=== PATIENT | female | born 1950 ===

== ENCOUNTER 2017-01-05 21:42 | Emergency (ER) | payer MEDICARE, MEDICAID ==
[2017-01-05 21:42] VITALS: BMI 24.7
[2017-01-05] MEDS ORDERED: Sodium Chloride 0.9% 1,000 ML IV STA (22:26)
--- NOTE | 2017-01-05 22:38 | ED PDOC ---
HPI: Fever Fever Onset Was: 01/03/17 The Fever Was Measured: Tympanic Past Medical History Vital Signs: Last Vital Signs Temp 100.4 F H 01/05/17 22:15 Pulse 92 H 01/05/17 22:15 Resp 16 01/05/17 22:15 BP 101/57 L 01/05/17 22:15 Pulse Ox 98 01/05/17 22:39 - Medical History PMH: Anxiety, Asthma, CHF, Depression, Diabetes, Gastritis, HTN, Hypercholesterolemia, Hypothyroidism Denies: Hepatitis, HIV, Chronic Kidney Disease, Seizures, Sexually Transmitted Disease - Surgical History Surgical History: Endoscopy - Family History Family History: States: Unknown Family Hx - Home Medications Home Medications: Ambulatory Orders Medication Instructions Recorded Carvedilol 25 mg PO BID 12/30/13 Escitalopram Oxalate 10 mg PO DAILY 12/30/13 Metformin HCl 1,000 mg PO BID 12/30/13 Atorvastatin [Lipitor] 40 mg PO DAILY 02/27/16 Aspirin [Ecotrin] 81 mg PO DAILY #0 tabec 02/28/16 Levothyroxine [Synthroid] 75 mcg PO DAILY #0 tab 02/28/16 MetFORMIN [glucoPHAGE] 1,000 mg PO BID #0 tab 02/28/16 Travoprost [Travatan Z] 1 drop EACHEYE HS #0 drops 02/28/16 Venlafaxine [Effexor XR] 150 mg PO BID #0 cer 02/28/16 Carvedilol [Coreg] 12.5 mg PO Q12H 04/17/16 amLODIPine [Norvasc] 5 mg PO DAILY 04/17/16 Cefuroxime Axetil [Ceftin] 500 mg PO BID 07/24/16 Phenazopyridine [Phenazopyridine 200 mg PO TID 07/24/16 HCl] oxyCODONE/Acetaminophen [Percocet 1 mg PO Q6 PRN 07/24/16 5/325 mg Tab] Atorvastatin [Lipitor] 80 mg PO DAILY 08/03/16 Lisinopril [Zestril] 40 mg PO DAILY 08/03/16 Venlafaxine HCl 75 mg PO BID 08/03/16 amLODIPine [Norvasc] 10 mg PO DAILY 08/03/16 hydroCHLOROthiazide [Hydrodiuril] 25 mg PO DAILY 08/03/16 Cefuroxime Axetil [Ceftin] 250 mg PO BID #10 tab 08/10/16 Phenazopyridine HCl [Pyridium] 200 mg PO TID #30 tablet 08/10/16 oxyCODONE/Acetaminophen [Percocet 1 ea PO Q6H PRN #20 tab 08/10/16 5/325 mg Tab] - Allergies Allergies/Adverse Reactions: Allergies Allergy/AdvReac Type Severity Reaction Status Date / Time No Known Allergies Allergy Verified 07/24/16 08:19 - ECG O2 Sat by Pulse Oximetry: 98 (RA) Pulse Ox Interpretation: Normal Medical Decision Making Medical Decision Making: Initial Impression: Fever; Chills. Differential diagnosis: Viral illness; Bronchitis; Pneumonia; Dehydration; Sepsis Initial Plan: * B-type natriuretic Peptide * Labs * Lact Acid, plasma * Troponin I * CXR * Toradol 15mg IV * NS 1,000 ml IV per 1,000 mls/hr * Tamiflu 75mg PO * Blood culture * Glucose, blood, POC * Influenza A B * Reevaluate Scribe Attestation: Documented by Jenny Wilson, acting as a scribe for Nallely Sims MD. Provider Scribe Attestation: All medical record entries made by the Scribe were at my direction and personally dictated by me. I have reviewed the chart and agree that the record accurately reflects my personal performance of the history, physical exam, medical decision making, and the department course for this patient. I have also personally directed, reviewed, and agree with the discharge instructions and disposition.
--- NOTE | 2017-01-05 22:45 | ED PDOC ---
HPI: CCC, URI, Sore Throat Time Seen by Provider: 01/05/17 22:16 Chief Complaint (Nursing): Fever Chief Complaint (Provider): cough History Per: Patient History/Exam Limitations: no limitations Onset/Duration Of Symptoms: Days (x3) Current Symptoms Are (Timing): Still Present Additional Complaint(s): Glenda Mao is a 66 year old female with previous medial history of asthma, hypertension, diabetes, hypercholesterolemia, thyroid disease, ulcers, and glaucoma, who presents to the emergency department with a complaint of a dry cough associated with a fever, malaise and fatigue ongoing for 3 days. Denies any rhinorrhea, shortness of breath, sore throat, chest pain, or relief of symptoms after taking Robitussin. Past Medical History Reviewed: Historical Data, Nursing Documentation, Vital Signs Vital Signs: Last Vital Signs Temp 98.0 F 01/06/17 01:38 Pulse 92 H 01/05/17 22:15 Resp 16 01/05/17 22:15 BP 101/57 L 01/05/17 22:15 Pulse Ox 98 01/05/17 22:53 - Medical History PMH: Anxiety, Asthma, CHF, Depression, Diabetes, Gastritis, HTN, Hypercholesterolemia, Hypothyroidism Denies: Hepatitis, HIV, Chronic Kidney Disease, Seizures, Sexually Transmitted Disease - Surgical History Surgical History: Endoscopy - Family History Family History: States: Unknown Family Hx - Home Medications Home Medications: Ambulatory Orders Medication Instructions Recorded Carvedilol 25 mg PO BID 12/30/13 Escitalopram Oxalate 10 mg PO DAILY 12/30/13 Metformin HCl 1,000 mg PO BID 12/30/13 Atorvastatin [Lipitor] 40 mg PO DAILY 02/27/16 Aspirin [Ecotrin] 81 mg PO DAILY #0 tabec 02/28/16 Levothyroxine [Synthroid] 75 mcg PO DAILY #0 tab 02/28/16 MetFORMIN [glucoPHAGE] 1,000 mg PO BID #0 tab 02/28/16 Travoprost [Travatan Z] 1 drop EACHEYE HS #0 drops 02/28/16 Venlafaxine [Effexor XR] 150 mg PO BID #0 cer 02/28/16 Carvedilol [Coreg] 12.5 mg PO Q12H 04/17/16 amLODIPine [Norvasc] 5 mg PO DAILY 04/17/16 Cefuroxime Axetil [Ceftin] 500 mg PO BID 07/24/16 Phenazopyridine [Phenazopyridine 200 mg PO TID 07/24/16 HCl] oxyCODONE/Acetaminophen [Percocet 1 mg PO Q6 PRN 07/24/16 5/325 mg Tab] Atorvastatin [Lipitor] 80 mg PO DAILY 08/03/16 Lisinopril [Zestril] 40 mg PO DAILY 08/03/16 Venlafaxine HCl 75 mg PO BID 08/03/16 amLODIPine [Norvasc] 10 mg PO DAILY 08/03/16 hydroCHLOROthiazide [Hydrodiuril] 25 mg PO DAILY 08/03/16 Cefuroxime Axetil [Ceftin] 250 mg PO BID #10 tab 08/10/16 Phenazopyridine HCl [Pyridium] 200 mg PO TID #30 tablet 08/10/16 oxyCODONE/Acetaminophen [Percocet 1 ea PO Q6H PRN #20 tab 08/10/16 5/325 mg Tab] Azithromycin 1 tab PO DAILY #4 tab 01/06/17 - Allergies Allergies/Adverse Reactions: Allergies Allergy/AdvReac Type Severity Reaction Status Date / Time No Known Allergies Allergy Verified 01/05/17 23:21 Review of Systems ROS Statement: Except As Marked, All Systems Reviewed And Found Negative Constitutional: Positive for: Fever, Malaise, Other (fatigue) ENT: Negative for: Nose Discharge, Throat Pain Cardiovascular: Negative for: Chest Pain Respiratory: Positive for: Cough (dry). Negative for: Shortness of Breath Physical Exam - Reviewed Nursing Documentation Reviewed: Yes Vital Signs Reviewed: Yes (Fever) - Physical Exam Appears: Positive for: Well, Non-toxic, Uncomfortable (tired appearing) Head Exam: Positive for: ATRAUMATIC, NORMAL INSPECTION, NORMOCEPHALIC Skin: Positive for: Normal Color, Warm, Dry ENT: Negative for: Normal ENT Inspection (dry mucous membrane), Pharyngeal Erythema, Tonsillar Exudate Neck: Positive for: Normal, Painless ROM, Supple Cardiovascular/Chest: Positive for: Regular Rate, Rhythm. Negative for: Chest Non Tender, Murmur Respiratory: Positive for: Normal Breath Sounds (bilaterally). Negative for: Wheezing, Respiratory Distress Gastrointestinal/Abdominal: Positive for: Normal Exam, Bowel Sounds, Soft. Negative for: Tenderness, Guarding, Rebound Back: Positive for: Normal Inspection. Negative for: L CVA Tenderness, R CVA Tenderness Extremity: Positive for: Normal ROM. Negative for: Pedal Edema, Deformity, Other (adenopathy) Neurologic/Psych: Positive for: Alert, robotics engineer II-XII (intact), Oriented - Laboratory Results Result Diagrams: 01/05/17 23:10 01/05/17 23:10 - ECG O2 Sat by Pulse Oximetry: 98 (RA) Pulse Ox Interpretation: Normal Medical Decision Making Medical Decision Making: Initial Impression: Fever; Chills. Differential diagnosis: Viral illness; Bronchitis; Pneumonia; Dehydration; Sepsis Initial Plan: * B-type natriuretic Peptide * Labs * Lact Acid, plasma * Troponin I * CXR * Toradol 15mg IV * NS 1,000 ml IV per 1,000 mls/hr * Tamiflu 75mg PO * Blood culture * Glucose, blood, POC * Influenza A B * Reevaluate ~ Scribe Attestation: Documented by Jenny Wilson, acting as a scribe for Nallely Sims MD. Provider Scribe Attestation: All medical record entries made by the Scribe were at my direction and personally dictated by me. I have reviewed the chart and agree that the record accurately reflects my personal performance of the history, physical exam, medical decision making, and the department course for this patient. I have also personally directed, reviewed, and agree with the discharge instructions and disposition. Disposition - Clinical Impression Clinical Impression: Anemia - Disposition Disposition: Routine/Home Disposition Time: 01:00 Condition: IMPROVED Additional Instructions: ESTA MUY IMPORTANTE VISITAR A LA CLINICA ESTA SEMANA A CHEQAR DE NUEVO Y POR MAS EVALUACIONES DE ANEMIA. [facility] A RECETO REGRESA SI SIENTE PEOR Prescriptions: Azithromycin 1 tab PO DAILY #4 tab Instructions: Acute Bronchitis (ED), Anemia (ED) Print Language: LEBANESE
[2017-01-05 23:49] LABS: BASO % 0.5 % (0.0-2.0); EOS # 0.2 K/uL (0.0-0.7); EOS % 2.9 % (0.0-4.0); HEMATOCRIT 31.1 % (34.0-47.0); LYMPH # 1.1 K/uL (1.0-4.3); LYMPH % 18.5 % (20.0-40.0); MEAN CELL VOLUME 83.1 fl (81.0-99.0); MEAN CORPUSCULAR HEMOGLOBIN 27.2 pg (27.0-31.0); MEAN CORPUSCULAR HGB CONC 32.7 g/dL (33.0-37.0); MEAN PLATELET VOLUME 9.7 fl (7.2-11.7); MONO # 0.6 K/uL (0.0-0.8); MONO % 9.8 % (0.0-10.0); NEUT # 4.2 K/uL (1.8-7.0); NEUT % 68.3 % (50.0-75.0); NRBC % 0.1 % (0.0-0.0); RED CELL DISTRIBUTION WIDTH 15.8 % (11.5-14.5); WHITE BLOOD COUNT 6.2 K/uL (4.8-10.8)
[2017-01-06] LABS: ALKALINE PHOSPHATASE 113 U/L (38-126); ALT/SGPT 64 U/L (9-52); AST/SGOT 45 U/L (14-36); BILIRUBIN,TOTAL 0.4 mg/dl (0.2-1.3); BLOOD UREA NITROGEN 35 mg/dl (7-17); CARBON DIOXIDE 25 mmol/L (22-30); CHLORIDE 99 mmol/L (98-107); GFR AFRICAN-AMERICAN 54; GLUCOSE,RANDOM 121 mg/dL (65-105); POTASSIUM 3.9 MMOL/L (3.6-5.0); SODIUM 136 mmol/l (132-148); TOTAL PROTEIN 8.2 G/DL (6.3-8.2)
[2017-01-06 01:38] VITALS: TEMP 98
[2017-01-06 01:47] VITALS: BP 124/76; PULSE 75; RESP 18
[2017-01-06 01:57] VITALS: O2SAT 98
--- NOTE | 2017-01-06 10:16 | RAD ---
HISTORY: cough fever COMPARISON: 10/17/2016 TECHNIQUE: Chest PA and lateral FINDINGS: LUNGS: Clear left lingular PLEURA: No significant pleural effusion identified. No pneumothorax apparent. CARDIOVASCULAR: Normal. OSSEOUS STRUCTURES: Minor multilevel degenerative spondylosis of the thoracic spine VISUALIZED UPPER ABDOMEN: Normal. OTHER FINDINGS: None. IMPRESSION: Moderate to fairly significant elevation right hemidiaphragm possibly due to eventration. There appears to be some mild bibasilar atelectasis and or scarring changes as well.
== END 2017-01-06 02:25 | disposition home or self-care (01) ==
LOC: H.ER 21:42
DX: J20.9 Acute bronchitis, unspecified (principal); D64.9 Anemia, unspecified; E11.9 Type 2 diabetes mellitus without complications; I10 Essential (primary) hypertension
CPT/HCPCS: 71020; 80053; 83605; 83880; 84484; 85025; 87040; 87804; 96361; 96374; 99283; J1885; J7040

== ENCOUNTER 2017-05-13 11:14 | Emergency (ER) | payer MEDICARE, MEDICAID ==
[2017-05-13 11:14] VITALS: BMI 26.5
[2017-05-13 11:24] VITALS: BP 176/95; PULSE 93; RESP 16; TEMP 98.5; O2SAT 98
[2017-05-13] MEDS ORDERED: Sodium Chloride 0.9% 1,000 ML IV STA (11:43)
--- NOTE | 2017-05-13 11:55 | ED PDOC ---
HPI: General Adult Time Seen by Provider: 05/13/17 11:44 Chief Complaint (Nursing): Abdominal Pain Chief Complaint (Provider): abominal pain History Per: Patient (66 y/o female h/o DM/HTN/HLD/Ulcers here with epigastric pain worse with eating and associated with nausea/vomiting x 2 weeks. Notes tactile chills/weakness. Denies any h/o diarrhea. NO outside travel. No ill contacts. Has been treated for 'fungal infection' of stomache recent with resolution noted 1 month prior on endoscopy.) Past Medical History Reviewed: Historical Data, Nursing Documentation, Vital Signs Vital Signs: Last Vital Signs Temp 98.5 F 05/13/17 11:20 Pulse 93 H 05/13/17 11:20 Resp 16 05/13/17 11:20 BP 176/95 H 05/13/17 11:20 Pulse Ox 98 05/13/17 11:59 - Medical History PMH: Anxiety, Asthma, CHF, Depression, Diabetes, Gastritis, HTN, Hypercholesterolemia, Hypothyroidism Denies: Hepatitis, HIV, Chronic Kidney Disease, Seizures, Sexually Transmitted Disease - Surgical History Surgical History: Endoscopy - Family History Family History: States: Unknown Family Hx - Home Medications Home Medications: Ambulatory Orders Medication Instructions Recorded Aspirin [Ecotrin] 81 mg PO DAILY #0 tabec 02/28/16 Levothyroxine [Synthroid] 75 mcg PO DAILY #0 tab 02/28/16 MetFORMIN [glucoPHAGE] 1,000 mg PO BID #0 tab 02/28/16 amLODIPine [Norvasc] 5 mg PO DAILY 04/17/16 Atorvastatin [Lipitor] 80 mg PO DAILY 08/03/16 Cyanocobalamin [Vitamin B12] 1 tab PO DAILY 02/13/17 Gabapentin 1 tab PO TID 02/13/17 Losartan/Hydrochlorothiazide 1 tab PO DAILY 02/13/17 [Losartan-Hctz 100-25 mg Tab] Nitrofurantoin Macrocrystal 1 tab PO DAILY 02/13/17 [Nitrofurantoin] [id number] CD [Cardizem CD] 1 tab PO DAILY 02/13/17 Cephalexin [Keflex] 500 mg PO QID #28 capsule 05/13/17 Omeprazole Magnesium [Prilosec Otc] 20 mg PO DAILY #15 tab 05/13/17 Ondansetron ODT [Zofran ODT] 4 mg PO Q8 PRN #2 odt 05/13/17 Ranitidine HCl [Zantac 75] 75 mg PO Q12 PRN #10 tablet 05/13/17 - Allergies Allergies/Adverse Reactions: Allergies Allergy/AdvReac Type Severity Reaction Status Date / Time No Known Allergies Allergy Verified 01/05/17 23:21 Review of Systems ROS Statement: Except As Marked, All Systems Reviewed And Found Negative Gastrointestinal: Positive for: Nausea, Vomiting, Abdominal Pain Physical Exam - Reviewed Nursing Documentation Reviewed: Yes Vital Signs Reviewed: Yes - Physical Exam Appears: Positive for: Well, Non-toxic, No Acute Distress Head Exam: Positive for: ATRAUMATIC, NORMAL INSPECTION, NORMOCEPHALIC Skin: Positive for: Normal Color, Warm, DRY Eye Exam: Positive for: EOMI, Normal appearance, PERRL ENT: Positive for: Normal ENT Inspection Neck: Positive for: Normal, Painless ROM Cardiovascular/Chest: Positive for: Regular Rate, Rhythm Respiratory: Positive for: CNT, Normal Breath Sounds Gastrointestinal/Abdominal: Positive for: Normal Exam, Bowel Sounds, Soft Back: Positive for: Normal Inspection Extremity: Positive for: Normal ROM Neurologic/Psych: Positive for: Alert, Oriented - Laboratory Results Result Diagrams: 05/13/17 12:10 05/13/17 12:10 - ECG O2 Sat by Pulse Oximetry: 98 - Progress ED Course And Treament: EKG: NSR 75bpm; no ectopy; genet cute changes pepcid 20 mg iv x 1 dose zofran 4 mg i vx 1 dose NS 1 liter wide open ultrasound of abdomen IMPRESSION: No evidence of cholelithiasis or cholecystitis. Unremarkable examination. Patient improved in ED. Asking to eat meal. UA demonstrate UTI. Disposition - Clinical Impression Clinical Impression: Gastritis, UTI (urinary tract infection) - Patient ED Disposition Is Patient to be Admitted: No - Disposition Referrals: Yaz OATES,MD Chelsey [Medical Doctor] - Disposition: Routine/Home Disposition Time: 16:04 Condition: STABLE Prescriptions: Cephalexin [Keflex] 500 mg PO QID #28 capsule Omeprazole Magnesium [Prilosec Otc] 20 mg PO DAILY #15 tab Ondansetron ODT [Zofran ODT] 4 mg PO Q8 PRN #2 odt PRN Reason: Nausea/Vomiting Ranitidine HCl [Zantac 75] 75 mg PO Q12 PRN #10 tablet PRN Reason: Pain, Moderate (4-7) Instructions: Gastritis (DC), Urinary Tract Infection in Women (DC), Diet for Ulcers and Gastritis (ED) Forms: [employer] (Vietnamese) Print Language: ENGLISH
--- NOTE | 2017-05-13 12:03 | CARD ---
APPROVED REPORT EKG Measurement Heart [id number] <Conclusion> Normal sinus rhythm Nonspecific ST abnormality Abnormal ECG
[2017-05-13 12:20] LABS: BASO % 0.3 % (0.0-2.0); EOS # 0.1 K/uL (0.0-0.7); EOS % 1.2 % (0.0-4.0); HEMATOCRIT 38.1 % (34.0-47.0); LYMPH # 1.7 K/uL (1.0-4.3); LYMPH % 26.8 % (20.0-40.0); MEAN CELL VOLUME 83.3 fl (81.0-99.0); MEAN CORPUSCULAR HEMOGLOBIN 27.8 pg (27.0-31.0); MEAN CORPUSCULAR HGB CONC 33.4 g/dL (33.0-37.0); MEAN PLATELET VOLUME 9.9 fl (7.2-11.7); MONO # 0.5 K/uL (0.0-0.8); MONO % 8.4 % (0.0-10.0); NEUT # 4.1 K/uL (1.8-7.0); NEUT % 63.3 % (50.0-75.0); NRBC % 0.4 % (0.0-0.0); RED CELL DISTRIBUTION WIDTH 15.2 % (11.5-14.5); WHITE BLOOD COUNT 6.5 K/uL (4.8-10.8)
[2017-05-13 12:35] LABS: ALKALINE PHOSPHATASE 93 U/L (38-126); ALT/SGPT 47 U/L (9-52); AST/SGOT 38 U/L (14-36); BILIRUBIN,TOTAL 0.5 mg/dl (0.2-1.3); BLOOD UREA NITROGEN 25 mg/dl (7-17); CALCIUM 9.7 mg/dL (8.4-10.2); CARBON DIOXIDE 24 mmol/L (22-30); CHLORIDE 104 mmol/L (98-107); GFR AFRICAN-AMERICAN 60; GLUCOSE,RANDOM 83 mg/dL (65-105); LIPASE 111 U/L (23-300); POTASSIUM 4.2 MMOL/L (3.6-5.0); SODIUM 139 mmol/l (132-148); TOTAL PROTEIN 8.4 G/DL (6.3-8.2)
--- NOTE | 2017-05-13 13:38 | US ---
HISTORY: evaluate for gallstones COMPARISON: None. TECHNIQUE: Sonographic evaluation of the right upper quadrant of the abdomen. FINDINGS: LIVER: Measures 11.3 cm in length. Normal echogenicity of the liver parenchyma. No mass. No intrahepatic bile duct dilatation. GALLBLADDER: No evidence of cholelithiasis. No mural thickening. Negative sonographic Hilton sign. COMMON BILE DUCT: Measures 3 mm. No stones. No dilatation. PANCREAS: Unremarkable as visualized. No mass. No ductal dilatation. RIGHT KIDNEY: Measures 9.3 cm in length. Normal echogenicity. No calculus, mass, or hydronephrosis. AORTA: Poorly visualized IVC: Poorly visualized OTHER FINDINGS: None . IMPRESSION: No evidence of cholelithiasis or cholecystitis. Unremarkable examination.
[2017-05-13 15:25] LABS: RBC URINE 15 /hpf (0-3); URINE BACTERIA OCC (<OCC); URINE BILIRUBIN NEGATIVE (NEGATIVE); URINE BLOOD SMALL (NEGATIVE); URINE COLOR YELLOW (YELLOW); URINE GLUCOSE (UA) NEG (Normal); URINE KETONE TRACE mg/dL (NEGATIVE); URINE LEUKOCYTE ESTERASE LARGE Leu/uL (Negative); URINE PROTEIN NEGATIVE (NEGATIVE); URINE UROBILINOGEN 0.2-1.0 mg/dL (0.2-1.0); WBC URINE 28 /hpf (0-5)
== END 2017-05-13 16:04 | disposition home or self-care (01) ==
LOC: H.ER 11:14
DX: K29.70 Gastritis, unspecified, without bleeding (principal); N39.0 Urinary tract infection, site not specified; E11.9 Type 2 diabetes mellitus without complications; I10 Essential (primary) hypertension
CPT/HCPCS: 76705; 80053; 81003; 82948; 83690; 83735; 84484; 85025; 87086; 93005; 96374; 96375; 99283; J2405; J7040

== ENCOUNTER 2017-06-04 15:12 | Observation (INO) | payer MEDICARE, MEDICAID ==
[2017-06-04 15:12] VITALS: BMI 26.5
[2017-06-04] MEDS ORDERED: Sodium Chloride 0.9% 500 ML IV STA (15:51)
--- NOTE | 2017-06-04 15:56 | ED PDOC ---
HPI: Chest Pain Time Seen by Provider: 06/04/17 15:32 Chief Complaint (Nursing): Chest Pain Chief Complaint (Provider): Chest pain History Per: Patient History/Exam Limitations: no limitations Onset/Duration Of Symptoms: Days (today afternoon) Current Symptoms Are (Timing): Still Present Additional Complaint(s): Pt. with sternal chest pain that started in the afternoon. No dyspnea, weakness , numbness, tingles. Has mild headache frontal. Not worst in her life and has had similar in the past. No dizziness, back pain. No leg pain, long distance travel, hormone tx. Pt. to [facility] today. Past Medical History Reviewed: Nursing Documentation, Vital Signs Vital Signs: Last Vital Signs Temp 100.2 F H 06/04/17 15:27 Pulse 84 06/04/17 15:27 Resp 18 06/04/17 15:27 BP 218/89 H 06/04/17 15:27 Pulse Ox 97 06/04/17 16:54 - Medical History PMH: Anxiety, Asthma, CHF, Depression, Diabetes, Gastritis, HTN, Hypercholesterolemia, Hypothyroidism Denies: Hepatitis, HIV, Chronic Kidney Disease, Seizures, Sexually Transmitted Disease - Surgical History Surgical History: Endoscopy - Family History Family History: States: Unknown Family Hx - Social History Current smoker - smoking cessation education provided: No Alcohol: None Drugs: Denies - Home Medications Home Medications: Ambulatory Orders Medication Instructions Recorded Gabapentin 600 mg PO TID 02/13/17 ARIPiprazole [Abilify] 10 mg PO DAILY 06/04/17 Enalapril Maleate [Vasotec] 10 mg PO DAILY 06/04/17 Ergocalciferol (Vitamin D2) 50,000 unit PO SAT 06/04/17 [Vitamin D2] Folic Acid [Folic Acid] 1 mg PO DAILY 06/04/17 Levothyroxine [Synthroid] 75 mcg PO DAILY 06/04/17 Rosuvastatin Calcium [Crestor] 5 mg PO DAILY 06/04/17 Travoprost [Travatan Z] 1 drop BOTHEYES HS 06/04/17 Venlafaxine [Effexor XR] 150 mg PO Q12H 06/04/17 traZODone [Desyrel] 50 mg PO HS 06/04/17 - Allergies Allergies/Adverse Reactions: Allergies Allergy/AdvReac Type Severity Reaction Status Date / Time No Known Allergies Allergy Verified 06/04/17 15:27 Review of Systems ROS Statement: Except As Marked, All Systems Reviewed And Found Negative Cardiovascular: Positive for: Chest Pain Neurological: Positive for: Headache Physical Exam - Reviewed Nursing Documentation Reviewed: Yes Vital Signs Reviewed: Yes - Physical Exam Appears: Positive for: Non-toxic, No Acute Distress Head Exam: Positive for: ATRAUMATIC, NORMAL INSPECTION, NORMOCEPHALIC Skin: Positive for: Normal Color, Warm, DRY Eye Exam: Positive for: EOMI, Normal appearance, PERRL ENT: Positive for: Normal ENT Inspection Neck: Positive for: Normal, Painless ROM Cardiovascular/Chest: Positive for: Regular Rate, Rhythm, Chest Non Tender. Negative for: Edema Respiratory: Positive for: CNT, Normal Breath Sounds Gastrointestinal/Abdominal: Positive for: Normal Exam, Bowel Sounds, Soft. Negative for: Tenderness Back: Positive for: Normal Inspection. Negative for: L CVA Tenderness, R CVA Tenderness Extremity: Positive for: Normal ROM. Negative for: Tenderness, Pedal Edema Neurologic/Psych: Positive for: Alert, reception II-XII, Oriented. Negative for: Motor/Sensory Deficits, Aphasia, Facial Droop - Laboratory Results Result Diagrams: 06/04/17 16:22 06/04/17 16:22 Interpretation Of Abn Labs: no acute - ECG ECG: Positive for: Interpreted By Me, Viewed By Me ECG Rhythm: Positive for: Normal QRS, Normal ST Segment, Sinus Rhythm O2 Sat by Pulse Oximetry: 97 Pulse Ox Interpretation: Normal - Radiology X-Ray: Interpreted by Me, Viewed By Me X-Ray Interpretation: No Acute Disease - Progress ED Course And Treament: 1653: Stable. AAOx3. Spoke with Dr. Harrison. Will admit tele obs. Pt. pcp is Dr. Brar. States she use to go to the clinic but currently is Dr. Brar. Pain free. Disposition - Clinical Impression Clinical Impression: Chest pain, HTN (hypertension) - Patient ED Disposition Is Patient to be Admitted: Yes Counseled Patient/Family Regarding: Studies Performed, Diagnosis - Disposition Disposition Time: 16:58 Condition: FAIR - Pt Status Changed To: Hospital Disposition Of: Observation - POA Present On Arrival: None
[2017-06-04 16:41] LABS: BASO % 0.7 % (0.0-2.0); EOS # 0.1 K/uL (0.0-0.7); EOS % 2.5 % (0.0-4.0); HEMATOCRIT 33.2 % (34.0-47.0); LYMPH # 1.6 K/uL (1.0-4.3); LYMPH % 33.9 % (20.0-40.0); MEAN CORPUSCULAR HEMOGLOBIN 27.8 pg (27.0-31.0); MEAN CORPUSCULAR HGB CONC 33.5 g/dL (33.0-37.0); MEAN PLATELET VOLUME 9.9 fl (7.2-11.7); MONO # 0.4 K/uL (0.0-0.8); MONO % 7.9 % (0.0-10.0); NEUT # 2.7 K/uL (1.8-7.0); NRBC % 0.7 % (0.0-0.0); RED CELL DISTRIBUTION WIDTH 14.8 % (11.5-14.5); WHITE BLOOD COUNT 4.8 K/uL (4.8-10.8)
[2017-06-04 16:44] LABS: ALB/GLOB RATIO 1.1 (1.0-2.1); ALKALINE PHOSPHATASE 76 U/L (38-126); ALT/SGPT 56 U/L (9-52); AST/SGOT 38 U/L (14-36); BILIRUBIN,TOTAL 0.3 mg/dl (0.2-1.3); BLOOD UREA NITROGEN 17 mg/dl (7-17); CARBON DIOXIDE 26 mmol/L (22-30); CHLORIDE 107 mmol/L (98-107); GFR AFRICAN-AMERICAN 60; GLUCOSE,RANDOM 92 mg/dL (65-105); POTASSIUM 3.6 MMOL/L (3.6-5.0); SODIUM 142 mmol/l (132-148); TOTAL PROTEIN 7.9 G/DL (6.3-8.2)
--- NOTE | 2017-06-04 17:19 | RAD ---
HISTORY: pain COMPARISON: Chest x-ray performed 01/05/17 TECHNIQUE: Chest, one view. FINDINGS: LUNGS: No focal consolidation. Please note that chest x-ray has limited sensitivity for the detection of pulmonary masses. PLEURA: No significant pleural effusion identified. No definite pneumothorax . CARDIOVASCULAR: Heart size appears within normal limits. Atherosclerotic calcification of the aortic knob. OSSEOUS STRUCTURES: Osseous demineralization. Degenerative changes. VISUALIZED UPPER ABDOMEN: Elevation of the right hemidiaphragm. OTHER FINDINGS: None. IMPRESSION: Elevation of the right hemidiaphragm.
--- NOTE | 2017-06-04 19:09 | CP.PCM.HP ---
History of Present Illness - History of Present Illness History of Present Illness: CC: chest pain This is a 66 year old female with a past medical history significant for hypertension, hyperlipidemia, anxiety/Depression, hypothyroidism, type 2 DM, who had a normal echocardiogram on 08/21/2015 including normal LV function, also with negative exercise stress test on 10/28/2015, who presented to the ED today with the complaint of chest pain. Her pain is described as substernal, mild to moderate, nonradiating, pressure-like. The pain started yesterday and resolved after an hour or so, but then this morning the pain came back and persisted for hours. She took ASA this morning without relief. She denies any associated shortness of breath, diaphoresis, nausea, or vomiting. In the ED, the patient was found to have significantly elevated blood pressure of 218/89 initially which improved with nitroglycerin sublingual tab. In addition her chest pain resolved with the nitro. Labwork is unremarkable overall, other than AST of 38 and ALT of 56; mildly elevated. Her troponin is negative. CXR shows degenerative osseous changes but no acute cardiopulmonary abnormalities. EKG shows NSR with nonspecific ST changes. The patient is to be placed on telemetry/ observation overnight for further workup and to rule out acute coronary syndrome. ROS as below. Present on Admission - Present on Admission Any Indicators Present on Admission: No Review of Systems - Hematologic/Lymphatic Additional comments: GENERAL/CONSTITUTIONAL: The patient denies fever, fatigue, weakness, weight gain or weight loss. HEAD, EYES, EARS, NOSE AND THROAT: Eyes - The patient denies pain, redness, loss of vision, double or blurred vision, flashing lights or spots, dryness, Ears, nose, mouth and throat. The patient denies ringing in the ears, loss of hearing, nosebleeds, loss of sense of smell, dry sinuses, sinusitis, post nasal drip, CARDIOVASCULAR: Admits to chest pain as in HPI. Denies palpitations. RESPIRATORY: The patient denies chronic dry cough, coughing up blood, coughing up mucus, wheezing, or shortness of breath. GASTROINTESTINAL: The patient denies decreased appetite, nausea, vomiting, vomiting blood or coffee ground material, heartburn, regurgitation, diarrhea, constipation, gas, blood in the stools, black tarry stools. GENITOURINARY: The patient denies difficult urination, pain or burning with urination, blood in the urine, frequency, or urgency MUSCULOSKELETAL: The patient denies arm, buttock, thigh or calf cramps. No joint or muscle pain. No muscle weakness or tenderness. No joint swelling, neck pain, back pain. SKIN: The patient denies easy bruising, skin redness, skin rash, hives, sensitivity to sun exposure, tightness, nodules or bumps, hair loss, color changes in the hands or feet with cold. NEUROLOGIC: The patient denies headache, dizziness, fainting, muscle spasm, loss of consciousness, sensitivity or pain in the hands and feet or memory loss. PSYCHIATRIC: The patient admits to anxiety and depression ENDOCRINE: The patient denies intolerance to hot or cold temperature, flushing, fingernail changes, increased thirst, or increased salt intake HEMATOLOGIC/LYMPHATIC: The patient denies anemia, bleeding tendency or clotting tendency. ALLERGIC/IMMUNOLOGIC: The patient denies rhinitis, asthma, skin sensitivity, latex allergies or sensitivity. Past Patient History - Infectious Disease Hx of Infectious Diseases: None - Tetanus Immunizations Tetanus Immunization: Unknown - Past Medical History & Family History Past Medical History?: Yes - Past Social History Alcohol: None Drugs: Denies - CARDIAC Hx Congestive Heart Failure: Yes Hx Hypercholesterolemia: Yes Hx Hypertension: Yes - PULMONARY Hx Asthma: Yes - NEUROLOGICAL Hx Seizures: No - HEENT Hx HEENT Problems: Yes Hx Glaucoma: Yes Other/Comment: left eye conjuntivitis - RENAL Hx Chronic Kidney Disease: No - ENDOCRINE/METABOLIC Hx Hypothyroidism: Yes - HEMATOLOGICAL/ONCOLOGICAL Hx Human Immunodeficiency Virus (HIV): No - INTEGUMENTARY Hx Dermatological Problems: No - MUSCULOSKELETAL/RHEUMATOLOGICAL Hx Musculoskeletal Disorders: No Hx Falls: No - GASTROINTESTINAL Hx Gastritis: Yes - GENITOURINARY/GYNECOLOGICAL Hx Sexually Transmitted Disorders: No - PSYCHIATRIC Hx Anxiety: Yes Hx Depression: Yes - SURGICAL HISTORY Hx Surgeries: No Hx Cardiac Catheterization: Yes (NEGATIVE) Hx Orthopedic Surgery: Yes (GREAT LEFT TOE) Other/Comment: HX: 07/24/16-CYSTO TURBT-RESECTION LEFT POSTERIOR WALL LESION. - ANESTHESIA Hx Anesthesia: Yes Hx Anesthesia Reactions: No Hx Malignant Hyperthermia: No Meds Allergies/Adverse Reactions: Allergies Allergy/AdvReac Type Severity Reaction Status Date / Time No Known Allergies Allergy Verified 06/04/17 15:27 Physical Exam - Additional Findings Additional findings: Physical exam: Constitutional- cooperative, awake, alert. Head- NCAT, PERRL Eye- PERRL, normal accommodation ENT- normal exam, MMM. Neck- normal inspection, supple, no JVD Respiratory- CTAB, no wheezes rales rhonchi Cardiovascular- RRR, +S1, +S2 no MRG GI/Abdominal- normal bowel sounds, soft, no mass, no hsm Skin- warm, dry Extremities Exam- normal capillary refill, normal inspection Neurological Exam- alert, stable gait Psych- normal mood, normal affect Results - Vital Signs Recent Vital Signs: Last Vital Signs Temp 100.2 F H 06/04/17 15:27 Pulse 84 06/04/17 15:27 Resp 18 06/04/17 15:27 BP 218/89 H 06/04/17 15:27 Pulse Ox 97 06/04/17 16:58 - Labs Result Diagrams: 06/04/17 16:22 06/04/17 16:22 Labs: Laboratory Results - last 24 hr 06/04/17 06/04/17 06/04/17 16:22 16:22 16:22 WBC 4.8 RBC 4.00 Hgb 11.1 L Hct 33.2 L MCV 83.0 MCH 27.8 MCHC 33.5 RDW 14.8 H Plt Count 149 MPV 9.9 Neut % (Auto) 55.0 Lymph % (Auto) 33.9 [place] % (Auto) 7.9 Eos % (Auto) 2.5 Baso % (Auto) 0.7 Neut # 2.7 Lymph # 1.6 [place] # 0.4 Eos # 0.1 Baso # 0.0 PT 11.4 INR 1.0 Sodium 142 Potassium 3.6 Chloride 107 Carbon Dioxide 26 Anion Gap 13 BUN 17 Creatinine 1.1 Est GFR ( Amer) 60 Est GFR (Non-Af Amer) 49 Random Glucose 92 Calcium 9.0 Total Bilirubin 0.3 AST 38 H ALT 56 H Alkaline Phosphatase 76 Troponin I < 0.0120 Total Protein 7.9 Albumin 4.1 Globulin 3.8 Albumin/Globulin Ratio 1.1 Assessment & Plan - Assessment and Plan (Free Text) Plan: ASSESSMENT/PLAN This is a 66 year old female with a past medical history significant for hypertension, hyperlipidemia, anxiety, hypothyroidism, type 2 DM, who had a normal echocardiogram on 08/21/2015 including normal LV function, also with negative exercise stress test on 10/28/2015, who is placed on tele/obs for chest pain r/o ACS Typical chest pain, uncertain etiology, r/o ACS, with significant family history of cardiac disease - Telemetry/observation overnight - Serial troponins - Heart healthy diet - Lipid panel- pt has hx of hypercholesterolemia - HGA1C - May be discharged in AM if rules out, if labs/repeat EKG come back concerning plan to obtain cardiac consultation Hypertensive urgency - Start Hydralazine 25 mg po TID along with continuation of her Enalapril 10 mg po daily - Titrate as necessary - Likely at least partially due to anxiety - Has improved with Nitro tab - Repeat vitals q 4 hours and continue to monitor. Hypothyroidism - Continue Synthroid - Check TSH Type 2 DM - HGA1C - Regular insulin sliding scale Hypercholesterolemia Lipid panel Continue home statin Anxiety/depression - Continue home Abilify - cont Trazodone 50 mg po HS - Effexor 150 mg po q 12 hour DVT prophylaxis - Heparin SQ
[2017-06-04 21:43] VITALS: RESP 18
[2017-06-04] MEDS ORDERED: Latanoprost 0.005% Opht SOUTION OU SCH (22:00)
[2017-06-04] MEDS: Venlafaxine 150 mg ER Cap PO SCH (22:48)
[2017-06-05] MEDS: Insulin Regular 100 units/ml SC SCH ×3 (01:27→12:20)
[2017-06-05] MEDS ORDERED: Nitroglycerin 2% Ointment Foilpak UD TOP STA (04:04)
[2017-06-05] MEDS ORDERED: Alum-Mag Hydrox-Simethicone Susp (30 mL) PO ONE (04:26)
[2017-06-05] MEDS ORDERED: Pantoprazole 40 mg EC Tab PO SCH (04:30)
[2017-06-05 06:02] LABS: THYROID STIMULATING HORMONE 0.25 mIU/ML (0.46-4.68)
[2017-06-05] MEDS ORDERED: Levothyroxine 75 MCG TAB PO SCH (06:30)
--- NOTE | 2017-06-05 07:46 | CARD ---
APPROVED REPORT EKG Measurement Heart [id number] <Conclusion> Normal sinus rhythm Normal ECG
[2017-06-05 08:17] VITALS: BP 156/74; PULSE 86; TEMP 97.8; O2SAT 96
[2017-06-05] MEDS: Venlafaxine 150 mg ER Cap PO SCH (08:48)
[2017-06-05] MEDS ORDERED: Levothyroxine 50 MCG TAB PO SCH (09:09)
[2017-06-05] MEDS ORDERED: Metoprolol Succinate 25 mg XL Tab PO SCH (09:15)
--- NOTE | 2017-06-05 10:10 | CP.PCM.DIS ---
Provider - Provider Date of Admission: 06/04/17 16:54 Attending physician: Roger Harrison DO Primary care physician: Dr Brar Time Spent in preparation of Discharge (in minutes): 25 Diagnosis - Discharge Diagnosis (1) Acute chest pain Status: Acute (2) Gastritis Status: Acute (3) DM type 2 (diabetes mellitus, type 2) Status: Chronic (4) Uncontrolled hypertension Status: Acute (5) Major depressive disorder Status: Chronic Priority: High (6) Dyslipidemia Status: Chronic Priority: Low (7) Hypothyroidism Status: Chronic Priority: Low Hospital Course - Lab Results Lab Results: Most Recent Lab Values WBC 4.8 K/uL (4.8-10.8) 06/04/17 16:22 RBC 4.00 Mil/uL (3.80-5.20) 06/04/17 16:22 Hgb 11.1 g/dL (12.0-16.0) L 06/04/17 16:22 Hct 33.2 % (34.0-47.0) L 06/04/17 16:22 MCV 83.0 fl (81.0-99.0) 06/04/17 16:22 MCH 27.8 pg (27.0-31.0) 06/04/17 16:22 MCHC 33.5 g/dL (33.0-37.0) 06/04/17 16:22 RDW 14.8 % (11.5-14.5) H 06/04/17 16:22 Plt Count 149 K/uL (130-400) 06/04/17 16:22 MPV 9.9 fl (7.2-11.7) 06/04/17 16:22 Neut % (Auto) 55.0 % (50.0-75.0) 06/04/17 16:22 Lymph % (Auto) 33.9 % (20.0-40.0) 06/04/17 16:22 [place] % (Auto) 7.9 % (0.0-10.0) 06/04/17 16:22 Eos % (Auto) 2.5 % (0.0-4.0) 06/04/17 16:22 Baso % (Auto) 0.7 % (0.0-2.0) 06/04/17 16:22 Neut # 2.7 K/uL (1.8-7.0) 06/04/17 16:22 Lymph # 1.6 K/uL (1.0-4.3) 06/04/17 16:22 [place] # 0.4 K/uL (0.0-0.8) 06/04/17 16:22 Eos # 0.1 K/uL (0.0-0.7) 06/04/17 16:22 Baso # 0.0 K/uL (0.0-0.2) 06/04/17 16:22 PT 11.4 Seconds (9.8-13.1) 06/04/17 16:22 INR 1.0 (0.9-1.2) 06/04/17 16:22 Sodium 142 mmol/l (132-148) 06/04/17 16:22 Potassium 3.6 MMOL/L (3.6-5.0) 06/04/17 16:22 Chloride 107 mmol/L (98-107) 06/04/17 16:22 Carbon Dioxide 26 mmol/L (22-30) 06/04/17 16:22 Anion Gap 13 (10-20) 06/04/17 16:22 BUN 17 mg/dl (7-17) 06/04/17 16:22 Creatinine 1.1 mg/dl (0.7-1.2) 06/04/17 16:22 Est GFR ( Amer) 60 06/04/17 16:22 Est GFR (Non-Af Amer) 49 06/04/17 16:22 POC Glucose (mg/dL) 141 mg/dL (65-110) H 06/05/17 05:12 Random Glucose 92 mg/dL (65-105) 06/04/17 16:22 Calcium 9.0 mg/dL (8.4-10.2) 06/04/17 16:22 Total Bilirubin 0.3 mg/dl (0.2-1.3) 06/04/17 16:22 AST 38 U/L (14-36) H 06/04/17 16:22 ALT 56 U/L (9-52) H 06/04/17 16:22 Alkaline Phosphatase 76 U/L (38-126) 06/04/17 16:22 Troponin I < 0.0120 ng/mL (0.00-0.120) 06/05/17 08:35 Total Protein 7.9 G/DL (6.3-8.2) 06/04/17 16:22 Albumin 4.1 g/dL (3.5-5.0) 06/04/17 16:22 Globulin 3.8 gm/dL (2.2-3.9) 06/04/17 16:22 Albumin/Globulin Ratio 1.1 (1.0-2.1) 06/04/17 16:22 Triglycerides 137 mg/DL (0-149) 06/05/17 04:25 Cholesterol 176 mg/dL (0-199) 06/05/17 04:25 LDL Cholesterol Direct 100 mg/dL (0-129) 06/05/17 04:25 HDL Cholesterol 41 MG/DL (30-70) 06/05/17 04:25 TSH 3rd Generation 0.25 mIU/ML (0.46-4.68) L 06/05/17 04:25 - Hospital Course Hospital Course: This is a 66 year old female with a past medical history significant for hypertension, hyperlipidemia, anxiety, hypothyroidism, type 2 DM, who had a normal echocardiogram on 08/21/2015 including normal LV function, also with negative exercise stress test on 10/28/2015, who is placed on tele/obs for chest pain r/o ACS. Pt started on ASA, BB, statin. Troponin x 3 negative. CP resolved Chest Pain, ACS ruled out pain prob sec to Gastritis , cont PPI - Telemetry/observation overnight - Serial troponins x 3 negative - Heart healthy diet Hypertensive urgency - Started Hydralazine 25 mg po TID along with continuation of her Enalapril 10 mg po daily - Likely at least partially due to anxiety - Has improved with Nitro tab - add low dose Torpol 25 mg Hypothyroidism - Continue Synthroid- decrease dose to 50mcg daily - low TSH Type 2 DM diet controlled HgbA1c= 6 Hypercholesterolemia Continue home statin Anxiety/depression - Continue home Abilify - cont Trazodone 50 mg po HS - Effexor 150 mg po q 12 hour DVT prophylaxis - Heparin SQ Discharge Exam - Head Exam Head Exam: ATRAUMATIC, NORMAL INSPECTION, NORMOCEPHALIC - Eye Exam Eye Exam: EOMI, Normal appearance Pupil Exam: NORMAL ACCOMODATION - ENT Exam ENT Exam: Mucous Membranes Moist, Normal External Ear Exam - Neck Exam Neck exam: Full Rom - Respiratory Exam Respiratory Exam: NORMAL BREATHING PATTERN. absent: Respiratory Distress - Cardiovascular Exam Cardiovascular Exam: REGULAR RHYTHM, +S1, +S2 - GI/Abdominal Exam GI & Abdominal Exam: Normal Bowel Sounds, Soft. absent: Tenderness - Extremities Exam Extremities exam: full ROM, normal capillary refill, pedal pulses present - Back Exam Back exam: FULL ROM. absent: CVA tenderness (L), CVA tenderness (R) - Neurological Exam Neurological exam: Alert, CN II-XII Intact, Normal Gait, Oriented x3, Reflexes Normal - Psychiatric Exam Psychiatric exam: Normal Affect, Normal Mood - Skin Skin Exam: Dry, Normal Color, Warm Discharge Plan - Discharge Medications Prescriptions: hydrALAZINE [Apresoline] 25 mg PO TID #90 tab Levothyroxine [Synthroid] 50 mcg PO DAILY #30 tab Metoprolol Succinate [Toprol XL] 25 mg PO DAILY #30 tab - Follow Up Plan Condition: GOOD Disposition: HOME/ ROUTINE Instructions: Hypertension (DC), Hypertension (GEN) Additional Instructions: ff up with Dr Maykel harrison further cardiac work up as outpt
[2017-06-08] MEDS ORDERED: Ergocalciferol 50,000 Intl Units Cap PO SCH (09:00)
== END 2017-06-05 14:19 | disposition home or self-care (01) ==
LOC: H.ER 15:12 → H.ERHOLD 16:54 → H.TEL 21:30
PROVIDERS: ADMIT Internal Medicine; ATTEND Internal Medicine
DX: R07.89 Other chest pain (principal); I11.0 Hypertensive heart disease with heart failure; E03.9 Hypothyroidism, unspecified; E11.9 Type 2 diabetes mellitus without complications; E78.00 Pure hypercholesterolemia, unspecified; E78.5 Hyperlipidemia, unspecified; F32.9 Major depressive disorder, single episode, unspecified; F41.9 Anxiety disorder, unspecified; H40.9 Unspecified glaucoma; I16.0 Hypertensive urgency; I50.9 Heart failure, unspecified; J45.909 Unspecified asthma, uncomplicated; K29.70 Gastritis, unspecified, without bleeding
CPT/HCPCS: 36415; 71010; 80053; 80061; 82948; 83036; 84443; 84484; 85025; 85610; 93005; 99282; G0378; J1644; J7040

== ENCOUNTER 2017-06-13 08:56 | Emergency (ER) | payer MEDICARE, MEDICAID ==
[2017-06-13 08:59] VITALS: BP 198/88; PULSE 78; RESP 20; TEMP 98.7; BMI 21.7
[2017-06-13 09:07] VITALS: O2SAT 98
--- NOTE | 2017-06-13 09:43 | ED PDOC ---
HPI: Hypertension/Hypotension Time Seen by Provider: 06/13/17 09:18 Chief Complaint (Nursing): High Blood Pressure Chief Complaint (Provider): High blood pressure History Per: Patient History/Exam Limitations: no limitations Onset/Duration Of Symptoms: Days (x1 week) Associated Symptoms: denies: Chest Pain, Dizziness, Headache, Other (shortness of breath) Quality Of Symptoms: Asymptomatic Additional Complaint(s): Amina Mao is a 66 year old female, with a past medical history of hypertension, who presents to the emergency department complaining of asymptomatic elevated blood pressure onset for 1 week. Patient denies any chest pain, dizziness, headache or shortness of breath. No further medical complaints. PMD: None provided. Past Medical History Reviewed: Historical Data, Nursing Documentation, Vital Signs Vital Signs: Last Vital Signs Temp 98.7 F 06/13/17 08:58 Pulse 78 06/13/17 08:58 Resp 20 06/13/17 08:58 BP 198/88 H 06/13/17 08:58 Pulse Ox 98 06/13/17 09:03 - Medical History PMH: Anxiety, Asthma, CHF, Depression, Diabetes, Gastritis, HTN, Hypercholesterolemia, Hypothyroidism Denies: Hepatitis, HIV, Chronic Kidney Disease, Seizures, Sexually Transmitted Disease - Surgical History Surgical History: Endoscopy - Family History Family History: States: Unknown Family Hx - Social History Current smoker - smoking cessation education provided: No Alcohol: None Drugs: Denies - Home Medications Home Medications: Ambulatory Orders Medication Instructions Recorded Gabapentin 600 mg PO TID 02/13/17 ARIPiprazole [Abilify] 10 mg PO DAILY 06/04/17 Enalapril Maleate [Vasotec] 10 mg PO DAILY 06/04/17 Ergocalciferol (Vitamin D2) 50,000 unit PO SAT 06/04/17 [Vitamin D2] Folic Acid 1 mg PO DAILY 06/04/17 Rosuvastatin Calcium [Crestor] 5 mg PO DAILY 06/04/17 Travoprost [Travatan Z] 1 drop BOTHEYES HS 06/04/17 Venlafaxine [Effexor XR] 150 mg PO Q12H 06/04/17 traZODone [Desyrel] 50 mg PO HS 06/04/17 Acetaminophen [Tylenol 325mg tab] 650 mg PO Q6 PRN tab 06/05/17 Levothyroxine [Synthroid] 50 mcg PO DAILY #30 tab 06/05/17 Metoprolol Succinate [Toprol XL] 25 mg PO DAILY #30 tab 06/05/17 hydrALAZINE [Apresoline] 25 mg PO TID #90 tab 06/05/17 Enalapril Maleate [Vasotec] 5 mg PO DAILY #30 tab 06/13/17 - Allergies Allergies/Adverse Reactions: Allergies Allergy/AdvReac Type Severity Reaction Status Date / Time No Known Allergies Allergy Verified 06/13/17 09:03 Review of Systems ROS Statement: Except As Marked, All Systems Reviewed And Found Negative Constitutional: Positive for: Other (asymptomatic elevated blood pressure) Cardiovascular: Negative for: Chest Pain Respiratory: Negative for: Shortness of Breath Neurological: Negative for: Headache, Dizziness Physical Exam - Reviewed Nursing Documentation Reviewed: Yes Vital Signs Reviewed: Yes - Physical Exam Appears: Positive for: Well, Non-toxic, No Acute Distress Head Exam: Positive for: ATRAUMATIC, NORMAL INSPECTION, NORMOCEPHALIC Skin: Positive for: Normal Color, Warm, Dry Eye Exam: Positive for: EOMI, Normal appearance, PERRL Neck: Positive for: Normal, Painless ROM, Supple Cardiovascular/Chest: Positive for: Regular Rate, Rhythm. Negative for: Murmur Respiratory: Positive for: Normal Breath Sounds. Negative for: Respiratory Distress Extremity: Positive for: Normal ROM. Negative for: Pedal Edema, Deformity, Swelling Neurologic/Psych: Positive for: Alert, Oriented. Negative for: Motor/Sensory Deficits - ECG O2 Sat by Pulse Oximetry: 98 (RA) Pulse Ox Interpretation: Normal Medical Decision Making Medical Decision Making: Initial Plan: Scribe Attestation: Documented by Monico Hsu, acting as a scribe for Modesto Jean-Baptiste MD Provider Scribe Attestation: All medical record entries made by the Scribe were at my direction and personally dictated by me. I have reviewed the chart and agree that the record accurately reflects my personal performance of the history, physical exam, medical decision making, and the department course for this patient. I have also personally directed, reviewed, and agree with the discharge instructions and disposition. Disposition - Clinical Impression Clinical Impression: Uncontrolled hypertension - Patient ED Disposition Is Patient to be Admitted: No Counseled Patient/Family Regarding: Studies Performed, Diagnosis, Need For Followup, Rx Given - Disposition Referrals: Pablo Brar MD [Staff Provider] - Disposition: Routine/Home Disposition Time: 10:19 Condition: FAIR Additional Instructions: Augmentar Vasotec hasta 15 mg diaria Prescriptions: Enalapril Maleate [Vasotec] 5 mg PO DAILY #30 tab Instructions: Hypertension (ED) Forms: [facility] (Qatari)
== END 2017-06-13 10:35 | disposition home or self-care (01) ==
LOC: H.ER 08:56
DX: I11.0 Hypertensive heart disease with heart failure (principal); E03.9 Hypothyroidism, unspecified; E11.9 Type 2 diabetes mellitus without complications; E78.00 Pure hypercholesterolemia, unspecified; F32.9 Major depressive disorder, single episode, unspecified; F41.9 Anxiety disorder, unspecified; J45.909 Unspecified asthma, uncomplicated

== ENCOUNTER 2017-10-29 16:10 | Emergency (ER) | payer MEDICARE, MEDICAID ==
[2017-10-29 16:10] VITALS: BMI 24.8
[2017-10-29] MEDS ORDERED: Sodium Chloride 0.9% 500 ML IV STA (16:30)
--- NOTE | 2017-10-29 16:49 | ED PDOC ---
HPI: Abdomen Time Seen by Provider: 10/29/17 16:17 Chief Complaint (Nursing): GI Problem Chief Complaint (Provider): Abdominal pain History Per: Patient History/Exam Limitations: no limitations Onset/Duration Of Symptoms: Days (3) Outside of [place] travel?: No Current Symptoms Are (Timing): Still Present Location Of Pain/Discomfort: Periumbilical Associated Symptoms: Chills, Nausea, Vomiting, Loss Of Appetite. denies: Diarrhea, Constipation, Urinary Symptoms Additional Complaint(s): 67yo female with history of hypertension, diabetes, hypercholesterolemia, gastritis, presents to ED for evaluation of abdominal pain for the past 3 days, mostly in her periumbilical area. Patient states pain is worsened with eating and is associated with nausea, non-bloody/non-bilious vomiting, loss of appetite , chills, lightheadedness, generalized weakness. Patient denies any diarrhea, constipation, urinary symptom, or fevers. Patient's daughter states she had similar symptom 1 year ago and had an endoscopy done which indicated "bacteria. " Patient also states 3 weeks ago, she had a cystoscopy and removed benign tumors. She denies any recent travels or known sick contacts. Patient offers no other medical complaints. PMD: [facility] Urologist: Dr. Durant GI: Dr. Hawkins Past Medical History Reviewed: Historical Data, Nursing Documentation, Vital Signs Vital Signs: Last Vital Signs Temp 98.5 F 10/29/17 16:14 Pulse 64 10/29/17 21:05 Resp 18 10/29/17 16:14 BP 138/78 10/29/17 16:55 Pulse Ox 99 10/29/17 21:05 - Medical History PMH: Anxiety, Asthma, CHF, Depression, Diabetes, Gastritis, HTN, Hypercholesterolemia, Hypothyroidism Denies: Hepatitis - Surgical History Surgical History: Endoscopy - Family History Family History: States: No Known Family Hx, Unknown Family Hx - Living Arrangements Living Arrangements: With Family - Social History Current smoker - smoking cessation education provided: No Alcohol: None Drugs: Denies - Home Medications Home Medications: Ambulatory Orders Medication Instructions Recorded Gabapentin 600 mg PO TID 02/13/17 ARIPiprazole [Abilify] 10 mg PO DAILY 06/04/17 Ergocalciferol (Vitamin D2) 50,000 unit PO SAT 06/04/17 [Vitamin D2] Folic Acid 1 mg PO DAILY 06/04/17 Levothyroxine [Synthroid] 50 mcg PO DAILY #30 tab 06/05/17 Atorvastatin [Lipitor] 80 mg PO DAILY 08/07/17 Carvedilol [Coreg] 25 mg PO DAILY 08/07/17 Escitalopram Oxalate [Escitalopram] 10 mg PO DAILY 08/07/17 Lisinopril [Zestril] 40 mg PO DAILY 08/07/17 MetFORMIN [glucOPHAGE] 1,000 mg PO BID 08/07/17 Venlafaxine HCl [Venlafaxine] 75 mg PO BID 08/07/17 amLODIPine [Norvasc] 10 mg PO DAILY 08/07/17 hydroCHLOROthiazide [Hydrodiuril] 25 mg PO DAILY 08/07/17 Dicyclomine [Bentyl] 20 mg PO BID PRN #30 tab 10/29/17 Nitrofurantoin Macrocrystals 1 cap PO BID #14 cap 10/29/17 [Macrobid] Saccharomyces Boulardi [Florastor] 500 mg PO BID #28 cap 10/29/17 - Allergies Allergies/Adverse Reactions: Allergies Allergy/AdvReac Type Severity Reaction Status Date / Time No Known Allergies Allergy Verified 06/13/17 09:03 Review of Systems ROS Statement: Except As Marked, All Systems Reviewed And Found Negative (per HPI) Constitutional: Positive for: Chills, Weakness. Negative for: Fever Cardiovascular: Positive for: Light Headedness Gastrointestinal: Positive for: Vomiting, Abdominal Pain (x 3 days, periumbilical). Negative for: Diarrhea, Constipation Genitourinary Female: Negative for: Dysuria, Frequency, Hematuria Physical Exam - Reviewed Nursing Documentation Reviewed: Yes Vital Signs Reviewed: Yes - Physical Exam Appears: Positive for: Non-toxic (tired appearing), No Acute Distress Head Exam: Positive for: ATRAUMATIC, NORMOCEPHALIC Skin: Positive for: Warm, Dry Eye Exam: Positive for: EOMI, PERRL ENT: Positive for: Pharynx Is (clear; dry mucus membranes). Negative for: Pharyngeal Erythema Neck: Positive for: Painless ROM, Supple Cardiovascular/Chest: Positive for: Regular Rate, Rhythm. Negative for: Murmur Respiratory: Positive for: Normal Breath Sounds. Negative for: Wheezing Gastrointestinal/Abdominal: Positive for: Soft, Tenderness (periumbilical), Other (Negative McBurney's point tenderness; Negative Hilton's sign). Negative for: Mass, Distended, Guarding, Rebound Back: Positive for: Normal Inspection. Negative for: Decreased ROM Extremity: Positive for: Normal ROM. Negative for: Deformity Lymphatic: Negative for: Adenopathy Neurologic/Psych: Positive for: Alert. Negative for: Motor/Sensory Deficits - Laboratory Results Result Diagrams: 10/29/17 16:49 10/29/17 15:49 - ECG ECG: Positive for: Interpreted By Me, Viewed By Me ECG Rhythm: Positive for: Normal QRS, Sinus Rhythm. Negative for: ST/T Changes Rate: 64 O2 Sat by Pulse Oximetry: 99 (RA) Pulse Ox Interpretation: Normal Medical Decision Making Medical Decision Making: Impression: Abdominal pain, dehydration Differential (including but not limited to): Gastroenteritis, electrolyte abnormalities, pancreatitis, hepatitis, dyspepsia, colitis, diverticulitis Plan: -- Labs -- IV Fluids -- Pepcid 20 mg IV -- Zofran 4mg IVP -- CT Abdomen and Pelvis w/ PO and IV Contrast Time: 2100 CT Abdomen/Pelvis FINDINGS: Lung bases: Linear atelectasis or fibrosis in the lung bases. ABDOMEN: Liver: Unremarkable. No mass. Gallbladder and bile ducts: Unremarkable. No calcified stones. No ductal dilation. Pancreas: Unremarkable. No mass. No ductal dilation. Spleen: Small low-attenuation focus in the spleen, too small to characterize. Adrenals: Unremarkable. No mass. Kidneys and ureters: Subcentimeter left renal cysts. No hydronephrosis. Stomach and bowel: Diverticulosis in the colon without evidence of diverticulitis. No obstruction. Appendix: Normal appendix. PELVIS: Bladder: Unremarkable. No mass. Reproductive: Unremarkable as visualized. ABDOMEN and PELVIS: Intraperitoneal space: Unremarkable. No free air. No significant fluid collection. Bones/joints: No acute fracture. No dislocation. Soft tissues: Unremarkable. Vasculature: Unremarkable. No abdominal aortic aneurysm. Lymph nodes: Unremarkable. No enlarged lymph nodes. IMPRESSION: No acute findings. Labs with possible UTI and some dehydration. No emergently significant lab abnormalities. On reeval pt appears well. Will rx with bentyl and macrobid and florastor and pt to follow up with GI Dr Hawkins. DW pt and family findings and plan of care. Concerns/questions addressed/answered. Stable for dc with further outpatient workup. Scribe Attestation: Documented by Lisa Wahl acting as a scribe for Nallely Sims MD. Provider Attestation: All medical record entries made by the Scribe were at my direction and personally dictated by me. I have reviewed the chart and agree that the record accurately reflects my personal performance of the history, physical exam, medical decision making, and the department course for this patient. I have also personally directed, reviewed, and agree with the discharge instructions and disposition. Disposition - Clinical Impression Clinical Impression: Abdominal pain, UTI (urinary tract infection) Counseled Patient/Family Regarding: Studies Performed, Diagnosis, Need For Followup, Rx Given - Disposition Referrals: Damir Hawkins MD [Medical Doctor] - (LLAME A LA OFICINA POR LA MANANA A HACER JAZ NUBIA EN 2-3 GRIFFIN) [facility] [place] [Outside] [facility] [Outside] Disposition: Routine/Home Disposition Time: 21:24 Condition: STABLE Prescriptions: Dicyclomine [Bentyl] 20 mg PO BID PRN #30 tab PRN Reason: abdominal pain Nitrofurantoin Macrocrystals [Macrobid] 1 cap PO BID #14 cap Saccharomyces Boulardi [Florastor] 500 mg PO BID #28 cap Instructions: Acute Abdomen (Belly Pain), Urinary Tract Infection, Adult (DC) Forms: [facility] (Uzbek) Print Language: URUGUAYAN
[2017-10-29 16:58] LABS: VENOUS BLOOD GAS BASE EXCESS 2.5 mmol/L (0.0-2.0); VENOUS BLOOD GAS PCO2 48 mmHg (40-60); VENOUS BLOOD GAS PO2 20 mm/Hg (30-55); VENOUS BLOOD PH 7.38 (7.32-7.43)
[2017-10-29 17:01] LABS: BASO % 0.5 % (0.0-2.0); EOS # 0.1 K/uL (0.0-0.7); EOS % 1.4 % (0.0-4.0); HEMOGLOBIN 12.5 g/dL (12.0-16.0); LYMPH # 1.9 K/uL (1.0-4.3); LYMPH % 26.8 % (20.0-40.0); MEAN CELL VOLUME 83.1 fl (81.0-99.0); MEAN CORPUSCULAR HEMOGLOBIN 27.7 pg (27.0-31.0); MEAN CORPUSCULAR HGB CONC 33.4 g/dL (33.0-37.0); MEAN PLATELET VOLUME 9.4 fl (7.2-11.7); MONO # 0.6 K/uL (0.0-0.8); MONO % 7.9 % (0.0-10.0); NEUT # 4.4 K/uL (1.8-7.0); NEUT % 63.4 % (50.0-75.0); NRBC % 0.1 % (0.0-0.0); RBC 4.51 Mil/uL (3.80-5.20); RED CELL DISTRIBUTION WIDTH 14.8 % (11.5-14.5)
[2017-10-29] MEDS: Sodium Chloride 0.9% 1,000 ML IV STA (17:11)
[2017-10-29 17:15] LABS: ALB/GLOB RATIO 0.9 (1.0-2.1); ALBUMIN 4.3 g/dL (3.5-5.0); ALT/SGPT 48 U/L (9-52); AST/SGOT 44 U/L (14-36); BLOOD UREA NITROGEN 19 mg/dl (7-17); CALCIUM 9.7 mg/dL (8.4-10.2); GFR AFRICAN-AMERICAN > 60; GFR NON-AFRICAN AMERICAN > 60; LIPASE 95 U/L (23-300)
[2017-10-29] MEDS ORDERED: Iohexol 240 (50 ml) ONE (17:20)
[2017-10-29] MEDS: Iohexol 240 (50 ml) PO ONE (17:23)
[2017-10-29 17:27] LABS: PARTIAL THROMBOPLASTIN TIME 30.5 Seconds (25.6-37.1); PROTHROMBIN TIME 10.7 Seconds (9.8-13.1)
[2017-10-29 17:29] LABS: SQUAMOUS EPITHIAL 2 /hpf (0-5); URINE BACTERIA RARE (<OCC); URINE BILIRUBIN NEGATIVE (NEGATIVE); URINE BLOOD NEGATIVE (NEGATIVE); URINE CLARITY SLIGHTY-CLOUDY (Clear); URINE COLOR YELLOW (YELLOW); URINE GLUCOSE (UA) NEG (Normal); URINE HYALINE CAST 0-2 /hpf (0-2); URINE LEUKOCYTE ESTERASE MOD Leu/uL (Negative); URINE PROTEIN NEGATIVE (NEGATIVE); URINE UROBILINOGEN 0.2-1.0 mg/dL (0.2-1.0)
[2017-10-29] MEDS ORDERED: Sodium Chloride 0.9% 100 ML ONE (20:22)
[2017-10-29] MEDS ORDERED: Iohexol 300 100 ML IJ ONE (20:22)
[2017-10-29 21:44] VITALS: BP 159/82; PULSE 82; RESP 16; TEMP 98.6; O2SAT 98
--- NOTE | 2017-10-30 08:11 | CARD ---
APPROVED REPORT EKG Measurement Heart [id number] <Conclusion> Normal sinus rhythm Nonspecific ST abnormality Abnormal ECG
--- NOTE | 2017-10-30 09:09 | CT ---
PROCEDURE: CT Abdomen and Pelvis with contrast HISTORY: Weakness, vomiting and abdominal pain. COMPARISON: 05/13/2017 abdominal ultrasound 05/28/2016 abdominal CTA TECHNIQUE: Contrast dose: 90 cc Omnipaque 300 Radiation dose: Total exam DLP = 480.79 mGy-cm. This CT exam was performed using one or more of the following dose reduction techniques: Automated exposure control, adjustment of the mA and/or kV according to patient size, and/or use of iterative reconstruction technique. FINDINGS: LOWER THORAX: Unremarkable. LIVER: Hepatic steatosis. No focal masses. No intrahepatic bile duct dilatation or perihepatic ascites. GALLBLADDER AND BILE DUCTS: Unremarkable. PANCREAS: Unremarkable. No gross lesion or ductal dilatation. SPLEEN: Mild splenomegaly. Sub cm cyst in the spleen an incidental finding ADRENALS: Unremarkable. No mass. KIDNEYS AND URETERS: Unremarkable. No hydronephrosis. No solid mass. VASCULATURE: Unremarkable. No aortic aneurysm. BOWEL: Diverticulosis without an acute inflammatory component or other associated pathologic process. APPENDIX: Normal appendix. PERITONEUM: Unremarkable. No free fluid. No free air. LYMPH NODES: Unremarkable. No enlarged lymph nodes. BLADDER: Unremarkable. REPRODUCTIVE: Unremarkable. BONES: No acute fracture. OTHER FINDINGS: None. IMPRESSION: No significant or acute findings to account for/ related to the clinical presentation. Additional benign and/or incidental findings described above. Concordant results (preliminary interpretation) provided by [employer]. Procedure Completed: 20:42 Preliminary ([facility]) Report: Dictated and Authenticated: 08:57 Final Interpretation: 09:07
== END 2017-10-29 21:44 | disposition home or self-care (01) ==
LOC: H.ER 16:10
DX: N39.0 Urinary tract infection, site not specified (principal); E03.9 Hypothyroidism, unspecified; E11.9 Type 2 diabetes mellitus without complications; E78.00 Pure hypercholesterolemia, unspecified; F32.9 Major depressive disorder, single episode, unspecified; F41.9 Anxiety disorder, unspecified; I11.0 Hypertensive heart disease with heart failure; I50.9 Heart failure, unspecified; J45.909 Unspecified asthma, uncomplicated; K57.30 Diverticulosis of large intestine without perforation or abscess without bleeding; Z79.84 Long term (current) use of oral hypoglycemic drugs; N28.1 Cyst of kidney, acquired
CPT/HCPCS: 74177; 80053; 81003; 82803; 83690; 83735; 84100; 84484; 85025; 85610; 85730; 87040; 87086; 93005; 96374; 96375; 99285; J2405; J7040; Q9966; Q9967

== ENCOUNTER 2017-11-28 04:02 | Observation (INO) | payer MEDICARE, MEDICAID ==
[2017-11-28 04:02] VITALS: BMI 24.8
[2017-11-28] MEDS ORDERED: Iohexol 240 (50 ml) PO ONE (04:27)
[2017-11-28] MEDS ORDERED: Sodium Chloride 0.9% 1,000 ML IV STA (04:30)
--- NOTE | 2017-11-28 04:52 | ED PDOC ---
HPI: Abdomen Time Seen by Provider: 11/28/17 04:25 Chief Complaint (Nursing): Abdominal Pain Chief Complaint (Provider): Abdominal pain History Per: Patient History/Exam Limitations: no limitations Onset/Duration Of Symptoms: Hrs Outside of US travel?: No Current Symptoms Are (Timing): Still Present Location Of Pain/Discomfort: RLQ, LLQ Quality Of Discomfort: Cramping, "Pain" Associated Symptoms: Diarrhea. denies: Fever, Chills, Nausea, Vomiting, Chest Pain Additional History Per: Patient Additional Complaint(s): 67yo female with history of hypertension, diabetes, hypercholesterolemia, gastritis, presents to ED for evaluation of abdominal pain since 7pm last night , mostly in her lower abdomen. She reports intermittent abdominal cramps with associated loose, watery bowel movements mixed with blood and small clots. She currently denies any pain. She also denies any fever, nausea, vomiting, cough, shortness of breath or chest pain. Patient has no other medical complaints. PMD: [place] [facility] Abnormal Vaginal Bleeding: No Past Medical History Reviewed: Historical Data, Nursing Documentation, Vital Signs Vital Signs: Last Vital Signs Temp 98.1 F 11/28/17 23:38 Pulse 71 11/28/17 23:38 Resp 20 11/28/17 23:38 BP 133/66 11/28/17 23:38 Pulse Ox 96 11/28/17 23:38 - Medical History PMH: Anxiety, Asthma, CHF, Depression, Diabetes, Gastritis, HTN, Hypercholesterolemia, Hypothyroidism Denies: Hepatitis - Surgical History Surgical History: Endoscopy - Family History Family History: States: No Known Family Hx, Unknown Family Hx - Living Arrangements Living Arrangements: With Family - Home Medications Home Medications: Ambulatory Orders Medication Instructions Recorded ARIPiprazole [Abilify] 10 mg PO HS 11/28/17 Gabapentin [Neurontin] 600 mg PO Q8 11/28/17 Levothyroxine [Synthroid] 50 mcg PO DAILY 11/28/17 Losartan/Hydrochlorothiazide 1 tab PO DAILY 11/28/17 [Losartan-Hctz 100-25 mg Tab] MetFORMIN [glucoPHAGE] 1,000 mg PO BID 11/28/17 Metoprolol Succinate [Toprol XL] 25 mg PO DAILY 11/28/17 Travoprost [Travatan Z] 1 drop EACHEYE HS 11/28/17 Venlafaxine HCl [Venlafaxine HCl 150 mg PO HS 11/28/17 ER] amLODIPine [Norvasc] 5 mg PO DAILY 11/28/17 traZODone [Desyrel] 50 mg PO HS 11/28/17 - Allergies Allergies/Adverse Reactions: Allergies Allergy/AdvReac Type Severity Reaction Status Date / Time No Known Allergies Allergy Verified 11/28/17 04:13 Review of Systems ROS Statement: Except As Marked, All Systems Reviewed And Found Negative Constitutional: Negative for: Fever, Chills Cardiovascular: Negative for: Chest Pain Respiratory: Negative for: Cough, Shortness of Breath Gastrointestinal: Positive for: Abdominal Pain, Diarrhea. Negative for: Nausea , Vomiting Physical Exam - Reviewed Nursing Documentation Reviewed: Yes Vital Signs Reviewed: Yes - Physical Exam Appears: Positive for: Non-toxic, No Acute Distress Head Exam: Positive for: ATRAUMATIC, NORMAL INSPECTION, NORMOCEPHALIC Skin: Positive for: Normal Color Eye Exam: Positive for: EOMI, PERRL Neck: Positive for: Normal, Supple Cardiovascular/Chest: Positive for: Regular Rate, Rhythm Respiratory: Positive for: Normal Breath Sounds. Negative for: Respiratory Distress Gastrointestinal/Abdominal: Positive for: Soft, Tenderness (lower abdomen tenderness, most present in left lower quadrant). Negative for: Mass, Guarding , Rebound Back: Positive for: Normal Inspection Extremity: Positive for: Normal ROM Neurologic/Psych: Positive for: Alert, Oriented. Negative for: Motor/Sensory Deficits - Laboratory Results Result Diagrams: 11/28/17 04:45 11/28/17 04:45 - ECG O2 Sat by Pulse Oximetry: 98 (RA) Pulse Ox Interpretation: Normal Medical Decision Making Medical Decision Making: Impression: 67yo female with left lower quadrant tenderness and bloody bowel movements Plan: -- Labs -- IV Fluids -- CT Abdomen w/ PO & IV contrast -- Bentyl 20mg PO Time: 0700 Labs reviewed and show no clinically significant findings. Patient to be signed out to Dr. Mancini pending CT study, reevaluation. Scribe Attestation: Documented by Lisa Whal, acting as a scribe for Pramod Nair MD. Provider Scribe Attestation: All medical record entries made by the Scribe were at my direction and personally dictated by me. I have reviewed the chart and agree that the record accurately reflects my personal performance of the history, physical exam, medical decision making, and the department course for this patient. I have also personally directed, reviewed, and agree with the discharge instructions and disposition. Disposition - Clinical Impression Clinical Impression: Abdominal pain in female - Patient ED Disposition Is Patient to be Admitted: Transfer of Care - Disposition Disposition: Transfer of Care Disposition Time: 07:00 Condition: STABLE Patient Signed Over To: Susanna Mancini
[2017-11-28] MEDS ORDERED: Iohexol 240 (50 ml) ONE (04:55)
[2017-11-28 04:59] LABS: BASO % 0.5 % (0.0-2.0); EOS # 0.1 K/uL (0.0-0.7); EOS % 2.2 % (0.0-4.0); HEMOGLOBIN 11.4 g/dL (12.0-16.0); LYMPH # 1.3 K/uL (1.0-4.3); LYMPH % 23.2 % (20.0-40.0); MEAN CELL VOLUME 83.3 fl (81.0-99.0); MEAN CORPUSCULAR HEMOGLOBIN 27.4 pg (27.0-31.0); MEAN CORPUSCULAR HGB CONC 32.9 g/dL (33.0-37.0); MEAN PLATELET VOLUME 9.4 fl (7.2-11.7); MONO # 0.4 K/uL (0.0-0.8); MONO % 6.7 % (0.0-10.0); NEUT # 3.7 K/uL (1.8-7.0); NEUT % 67.4 % (50.0-75.0); RBC 4.17 Mil/uL (3.80-5.20); RED CELL DISTRIBUTION WIDTH 15.2 % (11.5-14.5); WHITE BLOOD COUNT 5.5 K/uL (4.8-10.8)
[2017-11-28 05:32] LABS: ALT/SGPT 48 U/L (9-52); AST/SGOT 35 U/L (14-36); BLOOD UREA NITROGEN 22 mg/dl (7-17); CALCIUM 9.5 mg/dL (8.4-10.2); GFR AFRICAN-AMERICAN > 60; GFR NON-AFRICAN AMERICAN > 60; LIPASE 106 U/L (23-300)
[2017-11-28 05:34] LABS: PROTHROMBIN TIME 10.6 Seconds (9.8-13.1)
--- NOTE | 2017-11-28 07:25 | ED PDOC ---
- Laboratory Results Result Diagrams: 11/28/17 04:45 11/28/17 04:45 - ECG O2 Sat by Pulse Oximetry: 98 (RA) Pulse Ox Interpretation: Normal Medical Decision Making Medical Decision Making: Time: 07 Patient signed out to me by Dr. Nair pending CT scan. Time: 837 PROCEDURE: CT Abdomen and Pelvis with contrast FINDINGS: LOWER THORAX: Unremarkable. LIVER: Unremarkable. No gross lesion or ductal dilatation. GALLBLADDER AND BILE DUCTS: Unremarkable. PANCREAS: Unremarkable. No gross lesion or ductal dilatation. SPLEEN: Unremarkable. ADRENALS: Unremarkable. No mass. KIDNEYS AND URETERS: Unremarkable. No hydronephrosis. No solid mass. VASCULATURE: Unremarkable. No aortic aneurysm. BOWEL: Circumferential mural thickening of the descending and rectosigmoid colon consistent with a nonspecific colitis. No other abnormal bowel loops identified. There is diverticulosis of the sigmoid colon but no evidence of diverticulitis. No pericolonic inflammatory change is evident. There is no bowel obstruction. APPENDIX: Normal appendix. PERITONEUM: Unremarkable. No free fluid. No free air. LYMPH NODES: Unremarkable. No enlarged lymph nodes. BLADDER: Unremarkable. REPRODUCTIVE: Normal uterus BONES: No acute fracture. OTHER FINDINGS: None. IMPRESSION: Nonspecific colitis involving the descending rectosigmoid colon. No additional abnormality. Scribe Attestation: Documented by Satish Ivan, acting as a scribe for Susanna Mancini MD Provider Scribe Attestation: All medical record entries made by the Scribe were at my direction and personally dictated by me. I have reviewed the chart and agree that the record accurately reflects my personal performance of the history, physical exam, medical decision making, and the department course for this patient. I have also personally directed, reviewed, and agree with the discharge instructions and disposition. Disposition - Disposition Condition: STABLE Forms: [employer] (Mongolian)
[2017-11-28] MEDS ORDERED: Sodium Chloride 0.9% 100 ML ONE (07:59)
[2017-11-28] MEDS ORDERED: Iohexol 300 100 ML IJ ONE (07:59)
[2017-11-28] MEDS ORDERED: Potassium Chloride 20 mEq ER Tab PO ONE ×2 (08:00→08:27)
--- NOTE | 2017-11-28 08:40 | CT ---
PROCEDURE: CT Abdomen and Pelvis with contrast HISTORY: LLQ pain COMPARISON: None. TECHNIQUE: Contrast dose: 95 cc Omnipaque 300 Radiation dose: Total exam DLP = 400.26 mGy-cm. This CT exam was performed using one or more of the following dose reduction techniques: Automated exposure control, adjustment of the mA and/or kV according to patient size, and/or use of iterative reconstruction technique. FINDINGS: LOWER THORAX: Unremarkable. LIVER: Unremarkable. No gross lesion or ductal dilatation. GALLBLADDER AND BILE DUCTS: Unremarkable. PANCREAS: Unremarkable. No gross lesion or ductal dilatation. SPLEEN: Unremarkable. ADRENALS: Unremarkable. No mass. KIDNEYS AND URETERS: Unremarkable. No hydronephrosis. No solid mass. VASCULATURE: Unremarkable. No aortic aneurysm. BOWEL: Circumferential mural thickening of the descending and rectosigmoid colon consistent with a nonspecific colitis. No other abnormal bowel loops identified. There is diverticulosis of the sigmoid colon but no evidence of diverticulitis. No pericolonic inflammatory change is evident. There is no bowel obstruction. APPENDIX: Normal appendix. PERITONEUM: Unremarkable. No free fluid. No free air. LYMPH NODES: Unremarkable. No enlarged lymph nodes. BLADDER: Unremarkable. REPRODUCTIVE: Normal uterus BONES: No acute fracture. OTHER FINDINGS: None. IMPRESSION: Nonspecific colitis involving the descending rectosigmoid colon. No additional abnormality.
[2017-11-28] MEDS ORDERED: metroNIDAZOLE 500mg/100ml NS 100 ML IV STA (08:57)
[2017-11-28] MEDS ORDERED: Ciprofloxacin 400mg/200ml D5W 400 MG/200 ML BAG IV STA (08:57)
[2017-11-28] MEDS ORDERED: metroNIDAZOLE 500mg/100ml NS 100 ML IVPB ONE (09:31)
[2017-11-28] MEDS ORDERED: Ciprofloxacin 400mg/200ml D5W 400 MG/200 ML BAG IVPB ONE (09:31)
[2017-11-28] MEDS ORDERED: Patient's Own Med (Losartan/Hydrochlorothiazide [Losartan-Hctz 100-25 Mg Tab] 1 TAB) PO SCH (12:15)
--- NOTE | 2017-11-28 12:33 | CP.PCM.HP ---
History of Present Illness - History of Present Illness History of Present Illness: 67 yo female with a PMHx of urothelial CA, DMII, HTN, HLD, Hypothyroidism and bipolar disorder presented to [facility] ED w/ complaints of diffuse abdominal pain since last night associated one episode of hematochezia and multiple episodes of loose BM mixed with mucus and blood since last night. Denies any hx similar episodes in the past. Denies any nausea, vomiting, constipation, dysuria, hematuria, headache, dizziness, blurry vision, chest pain, dyspnea or cough. Denies any fever or chills. Pt reports she had colonoscopy and EGD done with about a year ago with Dr. Hawkins and was not told of any problems. . [place] ED course: VS: BP 140/75, RR 18, HR 86, Temp 98.1 F, pulse ox 98% Labs: CBC and coag unremarkable, CMP: low K+ (3.2) Abdomen and pelvic CT: IMPRESSION: Nonspecific colitis involving the descending rectosigmoid colon. No additional abnormality. Meds: NS 1 L bolus, Bentyl 20 mg, K-Dur 20 meq, cipro 400 mg IVP and flagyl 500 mg IVP. PMD: [facility], Dr. Seymour ( last visit 11/25/17) PMHx: HTN, HLD, DM2, Hypothyroidism, Bipolar, bladder CA PSHX: TURBT [place] [address] Durant Social: lives w/ son, denies: Smoking, drinking alcohol or drugs Allergies: NKDA LMP: >20 yrs ago Meds by [facility]: Metformin HCl 1000 MG Tablet 1 tablet with meals Twice a day Gabapentin 300 MG Capsule 1 capsule Three times a day Levothyroxine Sodium 50 MCG Tablet 1 tablet Once a day Losartan Potassium-HCTZ 100-25 MG Tablet 1 tablet Once a day Travatan Z 0.004 % Solution 1 drop into affected eye in the evening Once a day Aripiprazole 10 MG Tablet 1 tablet Once a day Metoprolol succinate ER 25 mg po daily Amlodipine 5 mg po BID Emergency contact: Daughter Danielle [phone] Present on Admission - Present on Admission Any Indicators Present on Admission: Yes Review of Systems - Constitutional Constitutional: absent: Chills, Fever - EENT Eyes: absent: Blurred Vision, Change in Vision Nose/Mouth/Throat: absent: Dysphagia, Sore Throat - Cardiovascular Cardiovascular: absent: Chest Pain, Diaphoresis, Dyspnea - Respiratory Respiratory: absent: Cough, Dyspnea - Gastrointestinal Gastrointestinal: Abdominal Pain, Loose Stools. absent: Nausea, Vomiting - Genitourinary Genitourinary: absent: Dysuria, Hematuria - Neurological Neurological: absent: Dizziness, Focal Weakness, Headaches - Hematologic/Lymphatic Hematologic: absent: Easy Bleeding, Easy Bruising Past Patient History - Infectious Disease Hx of Infectious Diseases: None - Tetanus Immunizations Tetanus Immunization: Unknown - Past Medical History & Family History Past Medical History?: Yes - Past Social History Smoking Status: Never Smoked - CARDIAC Hx Cardiac Disorders: Yes - PULMONARY Hx Respiratory Disorders: No - NEUROLOGICAL Hx Neurological Disorder: No - HEENT Hx HEENT Problems: Yes - RENAL Hx Chronic Kidney Disease: No - ENDOCRINE/METABOLIC Hx Endocrine Disorders: Yes - HEMATOLOGICAL/ONCOLOGICAL Hx Blood Disorders: No - INTEGUMENTARY Hx Dermatological Problems: No - MUSCULOSKELETAL/RHEUMATOLOGICAL Hx Musculoskeletal Disorders: Yes - GASTROINTESTINAL Hx Gastritis: Yes - GENITOURINARY/GYNECOLOGICAL Hx Genitourinary Disorders: No - PSYCHIATRIC Hx Psychophysiologic Disorder: Yes - SURGICAL HISTORY Hx Orthopedic Surgery: Yes Other/Comment: bladder tumor removal - ANESTHESIA Hx Anesthesia: Yes Hx Anesthesia Reactions: No Hx Malignant Hyperthermia: No Meds Allergies/Adverse Reactions: Allergies Allergy/AdvReac Type Severity Reaction Status Date / Time No Known Allergies Allergy Verified 11/28/17 04:13 Physical Exam - Constitutional Appears: Non-toxic, No Acute Distress - Head Exam Head Exam: NORMAL INSPECTION - ENT Exam ENT Exam: Mucous Membranes Dry - Neck Exam Neck exam: Positive for: Normal Inspection. Negative for: Lymphadenopathy - Respiratory Exam Respiratory Exam: Clear to Auscultation Bilateral, NORMAL BREATHING PATTERN. absent: Rales, Rhonchi, Wheezes, Respiratory Distress - Cardiovascular Exam Cardiovascular Exam: REGULAR RHYTHM, RRR, +S1, +S2 - GI/Abdominal Exam GI & Abdominal Exam: Normal Bowel Sounds, Soft, Tenderness (Mild LLQ tenderness ). absent: Guarding, Rebound, Rigid - Extremities Exam Extremities exam: Positive for: normal capillary refill, normal inspection, pedal pulses present. Negative for: pedal edema - Back Exam Back exam: absent: CVA tenderness (L), CVA tenderness (R) - Neurological Exam Neurological exam: Alert, Oriented x3 - Psychiatric Exam Psychiatric exam: Normal Affect, Normal Mood - Skin Skin Exam: Normal Color, Warm Results - Vital Signs Recent Vital Signs: Last Vital Signs Temp 97.8 F 11/28/17 11:00 Pulse 67 11/28/17 11:00 Resp 16 11/28/17 11:00 BP 130/73 11/28/17 11:00 Pulse Ox 98 11/28/17 10:57 - Labs Result Diagrams: 11/28/17 04:45 11/28/17 04:45 Labs: Laboratory Results - last 24 hr 11/28/17 11/28/17 11/28/17 04:45 04:45 04:45 WBC 5.5 RBC 4.17 Hgb 11.4 L Hct 34.7 MCV 83.3 MCH 27.4 MCHC 32.9 L RDW 15.2 H Plt Count 181 MPV 9.4 Neut % (Auto) 67.4 Lymph % (Auto) 23.2 Antelope % (Auto) 6.7 Eos % (Auto) 2.2 Baso % (Auto) 0.5 Neut # (Auto) 3.7 Lymph # (Auto) 1.3 Antelope # (Auto) 0.4 Eos # (Auto) 0.1 Baso # (Auto) 0.0 PT 10.6 INR 1.0 APTT 27.0 Sodium 143 Potassium 3.2 L Chloride 104 Carbon Dioxide 25 Anion Gap 17 BUN 22 H Creatinine 0.9 Est GFR ( Amer) > 60 Est GFR (Non-Af Amer) > 60 Random Glucose 149 H Calcium 9.5 Total Bilirubin 0.4 AST 35 ALT 48 Alkaline Phosphatase 98 Total Protein 8.2 Albumin 4.0 Globulin 4.2 H Albumin/Globulin Ratio 1.0 Lipase 106 Assessment & Plan - Assessment and Plan (Free Text) Assessment: Plan: 67 yo female with a PMHx of urothelial CA, DMII, HTN, HLD, Hypothyroidism and bipolar disorder admitted for abdominal pain and hematochezia 1) Acute diverticulitis -Admit to med/surg -Abdomen and pelvic CT: IMPRESSION: Nonspecific colitis involving the descending rectosigmoid colon. No additional abnormality -Afebrile and no leukocytosis -Continue with Flagyl 500 mg IVP Q8 and cipro 400 Mg IVP q12 ( received 1 dose of each in ED) -IVF'S @100cc/hr -Liquid diet -F/U labs 2) Hypokalemia -K: 3.2 -s/p K-dur 40 meq in ED -f/u CMP in AM 2) Hypertension, stable -c/w home medications (metoprolol, losartan/HCTZ, amlodipine ) 3) Hx of NIDDM2 -Controlled -HbA1C 6.0 on 06/05/17 -C/W home medications 4) Hypothyroidism -TSH : 2.51 on 07/31/17 -c/w levothyroxine 50 mcg daily 5) Bipolar disorder -c/w home medications 6) Hx Bladder CA -stable -cystoscopy in 10/10/17 -outpatient f/u with Dr. Durant in 3 months 7. DVT prophylaxis -SCD for now -hold on lovenox due to hematochezia. 8. Code status: -Full code
[2017-11-28] MEDS: Sodium Chloride 0.9% 1,000 ML IV SCH ×2 (13:00→22:18)
[2017-11-28] MEDS: metroNIDAZOLE 500mg/100ml NS 100 ML IVPB SCH (16:58)
[2017-11-28] MEDS: Metoprolol Succinate 25 mg XL Tab PO SCH (16:59)
[2017-11-28] MEDS: Ciprofloxacin 400mg/200ml D5W 400 MG/200 ML BAG IVPB SCH (21:37)
[2017-11-28] MEDS ORDERED: Latanoprost 0.005% Opht SOUTION OU SCH (22:00)
[2017-11-28 23:39] VITALS: RESP 20
[2017-11-29] MEDS: metroNIDAZOLE 500mg/100ml NS 100 ML IVPB SCH ×2 (00:34→09:48)
[2017-11-29] MEDS ORDERED: Levothyroxine 50 MCG TAB PO SCH (06:30)
[2017-11-29 06:34] LABS: HEMOGLOBIN 10.9 g/dL (12.0-16.0); MEAN CELL VOLUME 84.2 fl (81.0-99.0); MEAN CORPUSCULAR HEMOGLOBIN 28.1 pg (27.0-31.0); MEAN CORPUSCULAR HGB CONC 33.4 g/dL (33.0-37.0); RBC 3.89 Mil/uL (3.80-5.20); RED CELL DISTRIBUTION WIDTH 15.2 % (11.5-14.5); WHITE BLOOD COUNT 4.6 K/uL (4.8-10.8)
[2017-11-29 06:43] LABS: ALB/GLOB RATIO 0.9 (1.0-2.1); ALBUMIN 3.4 g/dL (3.5-5.0); ALT/SGPT 45 U/L (9-52); AST/SGOT 29 U/L (14-36); BLOOD UREA NITROGEN 12 mg/dl (7-17); CALCIUM 8.8 mg/dL (8.4-10.2); GFR AFRICAN-AMERICAN > 60; GFR NON-AFRICAN AMERICAN > 60
[2017-11-29] MEDS ORDERED: Potassium Chloride 20 mEq ER Tab PO ONE (06:50)
[2017-11-29 08:17] VITALS: BP 128/65; PULSE 64; TEMP 98.4; O2SAT 97
[2017-11-29] MEDS ORDERED: Chlorhexidine Gluconate 1 APPL/PKT TP ONE (08:41)
[2017-11-29] MEDS ORDERED: HCTZ/Losartan 12.5/50 Tab PO SCH (09:00)
[2017-11-29] MEDS ORDERED: Enoxaparin 40 mg Syringe SC SCH (09:00)
--- NOTE | 2017-11-29 09:42 | CP.PCM.CON ---
<Evaristo Bliss - Last Filed: 11/29/17 11:07> History of Present Illness - History of Present Illness History of Present Illness: PGY5 GI Fellow Consult Note Patient is a 67yo female with PMHx significant for HTN, DM, hypothryoidism, bipolar disorder who presented to the hospital with abdominal pain and rectal bleeding. The patient suddenly developed abdominal pain in the LLQ on Saturday evening at 7PM after dinner. She was passing normal, formed stool but noticed some "pink" tinge to her stool once and believed it was blood. She has not had any further episodes of rectal bleeding after this. Pain persisted and she presented to the ED for further work up. In the ED, a CT of the abdomen/pelvis showed descending/rectosigmoid colitis and diverticulosis Patient has never had colonoscopy and denies any history of rectal bleeding. No recent weight loss, nausea, vomiting, fever, chills. 12 system ROS performed and negative except where stated. PMHx: See HPI PSHx: Discussed with patient and denies past surgical history FHx: Brother - thyroid cancer Social: Denies tobacco, EtOH or illicit drug use Endo: Has had 3 EGDs previously, most recently 02/2017 - gastric polyps and submucosal lesion noted Past Patient History - Infectious Disease Hx of Infectious Diseases: None - Tetanus Immunizations Tetanus Immunization: Unknown - Past Medical History & Family History Past Medical History?: Yes - Past Social History Smoking Status: Never Smoked - CARDIAC Hx Congestive Heart Failure: Yes Hx Hypercholesterolemia: Yes Hx Hypertension: Yes - PULMONARY Hx Asthma: Yes - HEENT Hx HEENT Problems: Yes - ENDOCRINE/METABOLIC Hx Hypothyroidism: Yes - INTEGUMENTARY Hx Dermatological Problems: No - MUSCULOSKELETAL/RHEUMATOLOGICAL Hx Musculoskeletal Disorders: Yes - GASTROINTESTINAL Hx Gastritis: Yes - PSYCHIATRIC Hx Anxiety: Yes Hx Depression: Yes - SURGICAL HISTORY Hx Orthopedic Surgery: Yes Other/Comment: bladder tumor removal - ANESTHESIA Hx Anesthesia: Yes Hx Anesthesia Reactions: No Hx Malignant Hyperthermia: No Meds Allergies/Adverse Reactions: Allergies Allergy/AdvReac Type Severity Reaction Status Date / Time No Known Allergies Allergy Verified 11/28/17 04:13 - Medications Medications: Current Medications Acetaminophen (Tylenol 325mg Tab) 650 mg PO Q6 PRN PRN Reason: Pain, moderate (4-7) Amlodipine Besylate (Norvasc) 5 mg PO DAILY [facility] Last Admin: 11/28/17 16:58 Dose: 5 mg Aripiprazole (Abilify) 10 mg PO HS [facility] Last Admin: 11/28/17 21:40 Dose: 10 mg Gabapentin (Neurontin) 300 mg PO Q8 [facility] Last Admin: 11/29/17 00:34 Dose: 300 mg HCTZ/Losartan Potassium (Hyzaar 12.5 Mg-50 Mg) 2 tab PO DAILY [facility] Sodium Chloride (Sodium Chloride 0.9%) 1,000 mls @ 100 mls/hr IV .Q10H [facility] Last Admin: 11/28/17 22:18 Dose: Not Given Ciprofloxacin (Cipro 400mg/200ml Dsw) 400 mg in 200 mls @ 200 mls/hr IVPB Q12 [facility] PRN Reason: Protocol Last Admin: 11/28/17 21:37 Dose: 200 mls/hr Metronidazole (Flagyl 500mg/100ml Ns) 100 mls @ 100 mls/hr IVPB Q8 [facility] PRN Reason: Protocol Last Admin: 11/29/17 00:34 Dose: 100 mls/hr Latanoprost (Xalatan Opht) 1 drop OU HS [facility] Last Admin: 11/28/17 21:40 Dose: 1 drop Levothyroxine Sodium (Synthroid) 50 mcg PO DAILY@0630 [facility] Last Admin: 11/29/17 06:35 Dose: 50 mcg Metformin HCl (Glucophage) 1,000 mg PO BID [facility] Last Admin: 11/28/17 16:58 Dose: 1,000 mg Metoprolol Succinate (Toprol Xl) 25 mg PO DAILY [facility] Last Admin: 11/28/17 16:59 Dose: 25 mg Ondansetron HCl (Zofran Inj) 4 mg IVP Q6 PRN PRN Reason: Nausea/Vomiting Physical Exam - Constitutional Appears: Non-toxic, No Acute Distress - Eye Exam Eye Exam: EOMI, PERRL - ENT Exam ENT Exam: Mucous Membranes Moist - Respiratory Exam Respiratory Exam: Clear to Auscultation Bilateral. absent: Rales, Rhonchi, Wheezes - Cardiovascular Exam Cardiovascular Exam: RRR, +S1, +S2 - GI/Abdominal Exam GI & Abdominal Exam: Normal Bowel Sounds, Soft. absent: Distended, Firm, Guarding, Organomegaly, Rigid, Tenderness - Rectal Exam Rectal Exam: Hemorrhoids (external and internal). absent: Black Stool, Bloody Stool, Fecal Impaction - Extremities Exam Extremities exam: Positive for: normal inspection. Negative for: pedal edema - Neurological Exam Neurological exam: Alert, Oriented x3 - Psychiatric Exam Psychiatric exam: Normal Affect, Normal Mood - Skin Skin Exam: Dry, Warm Results - Vital Signs Recent Vital Signs: Last Vital Signs Temp 98.4 F 11/29/17 08:16 Pulse 64 11/29/17 08:16 Resp 20 11/29/17 08:16 BP 128/65 11/29/17 08:16 Pulse Ox 97 11/29/17 08:16 - Labs Result Diagrams: 11/29/17 06:10 11/29/17 05:40 Labs: Laboratory Results - last 24 hr 11/28/17 11/28/17 11/29/17 17:09 21:15 05:13 WBC RBC Hgb Hct MCV MCH MCHC RDW Plt Count Sodium Potassium Chloride Carbon Dioxide Anion Gap BUN Creatinine Est GFR ( Amer) Est GFR (Non-Af Amer) POC Glucose (mg/dL) 95 114 H 106 Random Glucose Calcium Total Bilirubin AST ALT Alkaline Phosphatase Total Protein Albumin Globulin Albumin/Globulin Ratio 11/29/17 11/29/17 05:40 06:10 WBC 4.6 L RBC 3.89 Hgb 10.9 L Hct 32.8 L MCV 84.2 MCH 28.1 MCHC 33.4 RDW 15.2 H Plt Count 157 Sodium 139 Potassium 3.5 L Chloride 105 Carbon Dioxide 20 L Anion Gap 18 BUN 12 Creatinine 0.7 Est GFR ( Amer) > 60 Est GFR (Non-Af Amer) > 60 POC Glucose (mg/dL) Random Glucose 112 H Calcium 8.8 Total Bilirubin 0.4 AST 29 ALT 45 Alkaline Phosphatase 87 Total Protein 7.2 Albumin 3.4 L Globulin 3.8 Albumin/Globulin Ratio 0.9 L Assessment & Plan - Assessment and Plan (Free Text) Assessment: Patient is a 67yo female with PMHx significant for HTN, DM, hypothryoidism, bipolar disorder who presented to the hospital with abdominal pain and rectal bleeding -Descending/sigmoid colitis -Diverticulosis -Anemia -External/internal hemorrhoids -Rectal bleeding likely a result of hemorrhoids/diverticulosis Plan: -Recommend advancing diet as tolerated -Augment fiber/water intake -Antibiotic coverage for total of 10 days given findings of colitis -Will benefit from outpatient colonoscopy 6-8 weeks from resolution of symptoms -Start Anusol-HC for internal/external hemorrhoids -Clear from D/C from GI standpoint - Date & Time Date: 11/29/17 Time: 07:45 <Chelsey Mukherjee - Last Filed: 11/29/17 14:12> Meds - Medications Medications: Current Medications Acetaminophen (Tylenol 325mg Tab) 650 mg PO Q6 PRN PRN Reason: Pain, moderate (4-7) Amlodipine Besylate (Norvasc) 5 mg PO DAILY [facility] Last Admin: 11/29/17 09:47 Dose: 5 mg Aripiprazole (Abilify) 10 mg PO HS [facility] Last Admin: 11/28/17 21:40 Dose: 10 mg Gabapentin (Neurontin) 300 mg PO Q8 [facility] Last Admin: 11/29/17 09:47 Dose: 300 mg HCTZ/Losartan Potassium (Hyzaar 12.5 Mg-50 Mg) 2 tab PO DAILY [facility] Last Admin: 11/29/17 09:48 Dose: 2 tab Ciprofloxacin (Cipro 400mg/200ml Dsw) 400 mg in 200 mls @ 200 mls/hr IVPB Q12 [facility] PRN Reason: Protocol Last Admin: 11/29/17 09:48 Dose: 200 mls/hr Metronidazole (Flagyl 500mg/100ml Ns) 100 mls @ 100 mls/hr IVPB Q8 [facility] PRN Reason: Protocol Last Admin: 11/29/17 09:48 Dose: 100 mls/hr Latanoprost (Xalatan Opht) 1 drop OU HS [facility] Last Admin: 11/28/17 21:40 Dose: 1 drop Levothyroxine Sodium (Synthroid) 50 mcg PO DAILY@0630 [facility] Last Admin: 11/29/17 06:35 Dose: 50 mcg Metformin HCl (Glucophage) 1,000 mg PO BID [facility] Last Admin: 11/29/17 09:47 Dose: 1,000 mg Metoprolol Succinate (Toprol Xl) 25 mg PO DAILY [facility] Last Admin: 11/29/17 09:47 Dose: 25 mg Ondansetron HCl (Zofran Inj) 4 mg IVP Q6 PRN PRN Reason: Nausea/Vomiting Results - Vital Signs Recent Vital Signs: Last Vital Signs Temp 98.4 F 11/29/17 08:16 Pulse 64 11/29/17 08:16 Resp 20 11/29/17 08:16 BP 128/65 11/29/17 08:16 Pulse Ox 97 11/29/17 08:16 - Labs Result Diagrams: 11/29/17 06:10 11/29/17 05:40 Labs: Laboratory Results - last 24 hr 11/28/17 11/28/17 11/29/17 17:09 21:15 05:13 WBC RBC Hgb Hct MCV MCH MCHC RDW Plt Count Sodium Potassium Chloride Carbon Dioxide Anion Gap BUN Creatinine Est GFR ( Amer) Est GFR (Non-Af Amer) POC Glucose (mg/dL) 95 114 H 106 Random Glucose Calcium Total Bilirubin AST ALT Alkaline Phosphatase Total Protein Albumin Globulin Albumin/Globulin Ratio 11/29/17 11/29/17 05:40 06:10 WBC 4.6 L RBC 3.89 Hgb 10.9 L Hct 32.8 L MCV 84.2 MCH 28.1 MCHC 33.4 RDW 15.2 H Plt Count 157 Sodium 139 Potassium 3.5 L Chloride 105 Carbon Dioxide 20 L Anion Gap 18 BUN 12 Creatinine 0.7 Est GFR ( Amer) > 60 Est GFR (Non-Af Amer) > 60 POC Glucose (mg/dL) Random Glucose 112 H Calcium 8.8 Total Bilirubin 0.4 AST 29 ALT 45 Alkaline Phosphatase 87 Total Protein 7.2 Albumin 3.4 L Globulin 3.8 Albumin/Globulin Ratio 0.9 L Attending/Attestation - Attestation I have personally seen and examined this patient.: Yes I have fully participated in the care of the patient.: Yes I have reviewed all pertinent clinical information: Yes Notes (Text): 11/29/17 14:11 This is a 67yo female with PMHx significant for HTN, DM, hypothryoidism, bipolar disorder who presented to the hospital with abdominal pain and rectal bleeding due Descending/sigmoid diverticulosis now resolved -Recommend advancing diet as tolerated -Augment fiber/water intake -Will benefit from outpatient colonoscopy 6-8 weeks from resolution of symptoms -Start Anusol-HC for internal/external hemorrhoids -Clear from D/C from GI standpoint
[2017-11-29] MEDS: Metoprolol Succinate 25 mg XL Tab PO SCH (09:47)
[2017-11-29] MEDS: Ciprofloxacin 400mg/200ml D5W 400 MG/200 ML BAG IVPB SCH (09:48)
[2017-11-29] MEDS: Sodium Chloride 0.9% 1,000 ML IV SCH (09:52)
--- NOTE | 2017-11-29 12:45 | CP.PCM.DIS ---
Provider - Provider Date of Admission: 11/28/17 10:27 Attending physician: Cele Henry MD Time Spent in preparation of Discharge (in minutes): 30 Diagnosis - Discharge Diagnosis (1) Acute diverticulitis Status: Acute (2) Abdominal pain Status: Resolved (3) DM type 2 (diabetes mellitus, type 2) Status: Chronic (4) Hypertension Status: Chronic Priority: Medium (5) Hypothyroidism Status: Chronic Priority: Low Hospital Course - Lab Results Lab Results: Micro Results 11/28/17 05:15 Blood-Venous Blood Culture - Preliminary NO GROWTH AFTER 24 HOURS 11/28/17 04:45 Blood-Venous Blood Culture - Preliminary NO GROWTH AFTER 24 HOURS Most Recent Lab Values WBC 4.6 K/uL (4.8-10.8) L 11/29/17 06:10 RBC 3.89 Mil/uL (3.80-5.20) 11/29/17 06:10 Hgb 10.9 g/dL (12.0-16.0) L 11/29/17 06:10 Hct 32.8 % (34.0-47.0) L 11/29/17 06:10 MCV 84.2 fl (81.0-99.0) 11/29/17 06:10 MCH 28.1 pg (27.0-31.0) 11/29/17 06:10 MCHC 33.4 g/dL (33.0-37.0) 11/29/17 06:10 RDW 15.2 % (11.5-14.5) H 11/29/17 06:10 Plt Count 157 K/uL (130-400) 11/29/17 06:10 MPV 9.4 fl (7.2-11.7) 11/28/17 04:45 Neut % (Auto) 67.4 % (50.0-75.0) 11/28/17 04:45 Lymph % (Auto) 23.2 % (20.0-40.0) 11/28/17 04:45 [place] % (Auto) 6.7 % (0.0-10.0) 11/28/17 04:45 Eos % (Auto) 2.2 % (0.0-4.0) 11/28/17 04:45 Baso % (Auto) 0.5 % (0.0-2.0) 11/28/17 04:45 Neut # (Auto) 3.7 K/uL (1.8-7.0) 11/28/17 04:45 Lymph # (Auto) 1.3 K/uL (1.0-4.3) 11/28/17 04:45 [place] # (Auto) 0.4 K/uL (0.0-0.8) 11/28/17 04:45 Eos # (Auto) 0.1 K/uL (0.0-0.7) 11/28/17 04:45 Baso # (Auto) 0.0 K/uL (0.0-0.2) 11/28/17 04:45 PT 10.6 Seconds (9.8-13.1) 11/28/17 04:45 INR 1.0 (0.9-1.2) 11/28/17 04:45 APTT 27.0 Seconds (25.6-37.1) 11/28/17 04:45 Sodium 139 mmol/l (132-148) 11/29/17 05:40 Potassium 3.5 MMOL/L (3.6-5.0) L 11/29/17 05:40 Chloride 105 mmol/L (98-107) 11/29/17 05:40 Carbon Dioxide 20 mmol/L (22-30) L 11/29/17 05:40 Anion Gap 18 (10-20) 11/29/17 05:40 BUN 12 mg/dl (7-17) 11/29/17 05:40 Creatinine 0.7 mg/dl (0.7-1.2) 11/29/17 05:40 Est GFR ( Amer) > 60 11/29/17 05:40 Est GFR (Non-Af Amer) > 60 11/29/17 05:40 POC Glucose (mg/dL) 106 mg/dL (65-110) 11/29/17 05:13 Random Glucose 112 mg/dL (65-105) H 11/29/17 05:40 Calcium 8.8 mg/dL (8.4-10.2) 11/29/17 05:40 Total Bilirubin 0.4 mg/dl (0.2-1.3) 11/29/17 05:40 AST 29 U/L (14-36) 11/29/17 05:40 ALT 45 U/L (9-52) 11/29/17 05:40 Alkaline Phosphatase 87 U/L (38-126) 11/29/17 05:40 Total Protein 7.2 G/DL (6.3-8.2) 11/29/17 05:40 Albumin 3.4 g/dL (3.5-5.0) L 11/29/17 05:40 Globulin 3.8 gm/dL (2.2-3.9) 11/29/17 05:40 Albumin/Globulin Ratio 0.9 (1.0-2.1) L 11/29/17 05:40 Lipase 106 U/L (23-300) 11/28/17 04:45 - Hospital Course Hospital Course: 67 yo female with a PMHx of urothelial CA, DMII, HTN, HLD, Hypothyroidism and bipolar disorder presented to [facility] ED on 11/28/17 w/ complaints of diffuse abdominal pain since last night associated one episode of hematochezia and multiple episodes of loose BM mixed with mucus and blood since last night. Denies any hx similar episodes in the past. Denies any nausea, vomiting, constipation, dysuria, hematuria, headache, dizziness, blurry vision, chest pain , dyspnea or cough. Denies any fever or chills. Pt was admitted for acute diverticulitis and hematochezia. CT of abdomen and pelvis shows nonspecific colitis involving the descending rectosigmoid colon. Pt received ciprofloxacin and flagyl while in inpatient. GI was consulted and advised to have outpatient colonoscopy in 2 months after resolution of symptoms. H&H this morning 10.9/ 32.8. Pt is medically stable to discharge home with po abx. Advised PMD f/u in 1 week. New Medications on discharge: Ciprofloxacin [Cipro] 500 mg PO BID #18 tab Hydrocortisone 2.5% (Rectal) [Anusol-HC] 30 applic NE BID #1 tube Metronidazole [Flagyl] 500 mg PO TID #27 tablet Discharge Exam - Head Exam Head Exam: ATRAUMATIC, NORMAL INSPECTION, NORMOCEPHALIC - Eye Exam Eye Exam: Normal appearance - ENT Exam ENT Exam: Mucous Membranes Moist - Neck Exam Neck exam: Normal Inspection - Respiratory Exam Respiratory Exam: Clear to PA & Lateral, NORMAL BREATHING PATTERN. absent: Rales, Rhonchi, Wheezes - Cardiovascular Exam Cardiovascular Exam: REGULAR RHYTHM, +S1, +S2 - GI/Abdominal Exam GI & Abdominal Exam: Normal Bowel Sounds, Soft. absent: Tenderness - Extremities Exam Extremities exam: normal inspection - Neurological Exam Neurological exam: Alert, Oriented x3 - Psychiatric Exam Psychiatric exam: Normal Affect, Normal Mood Discharge Plan - Discharge Medications Prescriptions: Ciprofloxacin [Cipro] 500 mg PO BID #18 tab Hydrocortisone 2.5% (Rectal) [Anusol-HC] 30 applic NE BID #1 tube Metronidazole [Flagyl] 500 mg PO TID #27 tablet - Follow Up Plan Condition: STABLE Disposition: HOME/ ROUTINE Instructions: Bloody Stools, Adult (DC) Additional Instructions: Please follow up with Dr. Parks on December 10 at 1:20pm ED precautions Follow up with Gastroenterology Referrals: [facility] [Outside] Desean Parks MD [Resident] -
[2017-11-29] MEDS ORDERED: Anusol Suppository PR SCH (17:00)
== END 2017-11-29 14:20 | disposition home or self-care (01) ==
LOC: H.ER 04:02 → H.ERHOLD 10:27 → H.MEDSURG1 11:53
PROVIDERS: ADMIT Family Medicine Geriatric Medicine; ATTEND Family Medicine Geriatric Medicine
DX: K57.32 Diverticulitis of large intestine without perforation or abscess without bleeding (principal); K64.8 Other hemorrhoids; Z80.8 Family history of malignant neoplasm of other organs or systems; Z85.51 Personal history of malignant neoplasm of bladder; D49.4 Neoplasm of unspecified behavior of bladder; F32.9 Major depressive disorder, single episode, unspecified; F41.9 Anxiety disorder, unspecified; F45.9 Somatoform disorder, unspecified; K29.70 Gastritis, unspecified, without bleeding; Z79.84 Long term (current) use of oral hypoglycemic drugs; Z79.899 Other long term (current) drug therapy; D64.9 Anemia, unspecified; E03.9 Hypothyroidism, unspecified; E11.9 Type 2 diabetes mellitus without complications; E78.00 Pure hypercholesterolemia, unspecified; E78.5 Hyperlipidemia, unspecified; F31.9 Bipolar disorder, unspecified; I11.0 Hypertensive heart disease with heart failure; I50.9 Heart failure, unspecified; J45.909 Unspecified asthma, uncomplicated; K52.9 Noninfective gastroenteritis and colitis, unspecified
CPT/HCPCS: 36415; 74177; 80053; 82948; 83690; 85025; 85027; 85610; 85730; 87040; 96365; 96366; 96367; 96368; 96375; 99285; G0378; J0744; J7040; Q9966; Q9967

== ENCOUNTER 2018-01-08 15:40 | Emergency (ER) | payer MEDICARE, MEDICAID ==
[2018-01-08 15:40] VITALS: BMI 24.8
[2018-01-08 15:56] VITALS: BP 188/78; PULSE 72; RESP 18; TEMP 98.1; O2SAT 98
--- NOTE | 2018-01-08 16:56 | ED PDOC ---
HPI: Skin/Bite Injury Time Seen by Provider: 01/08/18 16:02 Chief Complaint (Nursing): Abnormal Skin Integrity Chief Complaint (Provider): Rash History Per: Patient History/Exam Limitations: no limitations Onset/Duration Of Symptoms: Days Current Symptoms Are (Timing): Still Present Location Of Injury: Right: Knee, Left: Knee Additional Complaint(s): 67 year old female presents to the ED for an evaluation of non-pruritic rash on both knees onset today morning. States it is not painful. Denies any trauma or history of previous rashes. PMD: Marcelo Seymour Past Medical History Reviewed: Historical Data, Nursing Documentation, Vital Signs Vital Signs: Last Vital Signs Temp 98.1 F 01/08/18 15:52 Pulse 72 01/08/18 15:52 Resp 18 01/08/18 15:52 BP 188/78 H 01/08/18 15:52 Pulse Ox 98 01/08/18 19:20 - Medical History PMH: Anxiety, Asthma, CHF, Depression, Diabetes, Gastritis, HTN, Hypercholesterolemia, Hypothyroidism Denies: Hepatitis - Surgical History Surgical History: Endoscopy - Family History Family History: States: Unknown Family Hx - Home Medications Home Medications: Ambulatory Orders Medication Instructions Recorded ARIPiprazole [Abilify] 10 mg PO HS 11/28/17 Gabapentin [Neurontin] 600 mg PO Q8 11/28/17 Levothyroxine [Synthroid] 50 mcg PO DAILY 11/28/17 Losartan/Hydrochlorothiazide 1 tab PO DAILY 11/28/17 [Losartan-Hctz 100-25 mg Tab] MetFORMIN [glucoPHAGE] 1,000 mg PO BID 11/28/17 Metoprolol Succinate XL [Toprol XL] 25 mg PO DAILY 11/28/17 Travoprost [Travatan Z] 1 drop EACHEYE HS 11/28/17 Venlafaxine HCl [Venlafaxine HCl 150 mg PO HS 11/28/17 ER] amLODIPine [Norvasc] 5 mg PO DAILY 11/28/17 traZODone [Desyrel] 50 mg PO HS 11/28/17 Ciprofloxacin [Cipro] 500 mg PO BID #18 tab 11/29/17 Hydrocortisone 2.5% (Rectal) 30 applic MO BID #1 tube 11/29/17 [Anusol-HC] Metronidazole [Flagyl] 500 mg PO TID #27 tablet 11/29/17 - Allergies Allergies/Adverse Reactions: Allergies Allergy/AdvReac Type Severity Reaction Status Date / Time No Known Allergies Allergy Verified 11/28/17 04:13 Review of Systems ROS Statement: Except As Marked, All Systems Reviewed And Found Negative Musculoskeletal: Negative for: Leg Pain Skin: Positive for: Rash (bilateral knees) Physical Exam - Reviewed Nursing Documentation Reviewed: Yes Vital Signs Reviewed: Yes - Physical Exam Appears: Positive for: Non-toxic, No Acute Distress Head Exam: Positive for: ATRAUMATIC, NORMAL INSPECTION, NORMOCEPHALIC Skin: Positive for: Rash (scattered, bilateral with swelling and redness, no pustules or vesicles) Eye Exam: Positive for: Normal appearance Neurologic/Psych: Positive for: Alert, Oriented (x3). Negative for: Motor/ Sensory Deficits - Laboratory Results Result Diagrams: 01/08/18 18:05 01/08/18 18:05 - ECG O2 Sat by Pulse Oximetry: 98 (RA) Pulse Ox Interpretation: Normal - Progress ED Course And Treament: Pt. evaluated by Dr. Christine who recommends check CBC to make sure pt. is not thrombocytopenic. Lab results d/w Dr. Christine who agrees with disposition. Pt. informed of results and advised to f/u with [facility] for further evaluation. Medical Decision Making Medical Decision Making: Time: 1602 Initial Plan: --CMP --CBC w/ Differential --PTT --Prothrombin Time --IV Insertion --Reevaluation Clinical Impression: Rash Upon provider evaluation patient is medically stable, and requires no further treatment in the ED at this time. Patient will be discharged. Counseling was provided and all questions were answered regarding diagnosis and need for follow up with PMD. There is agreement to discharge plan. Return if symptoms persist or worsen. Scribe Attestation: Documented by Satish Ivan, acting as a scribe for Ilan E Pormentilla, PA-C. Provider Scribe Attestation: All medical record entries made by the Scribe were at my direction and personally dictated by me. I have reviewed the chart and agree that the record accurately reflects my personal performance of the history, physical exam, medical decision making, and the department course for this patient. I have also personally directed, reviewed, and agree with the discharge instructions and disposition. Disposition - Clinical Impression Clinical Impression: Rash - Patient ED Disposition Is Patient to be Admitted: No - Disposition Referrals: [facility] [Outside] Disposition: Routine/Home Disposition Time: 19:19 Condition: STABLE Additional Instructions: Follow up with PMD for further evaluation. Return to ED immediately if symptoms worsen. Instructions: Skin Rash (DC) Forms: [facility] (Dutch) Print Language: RWANDAN
[2018-01-08 18:36] LABS: BASO % 0.4 % (0.0-2.0); EOS # 0.2 K/uL (0.0-0.7); HEMOGLOBIN 11.7 g/dL (12.0-16.0); LYMPH # 1.7 K/uL (1.0-4.3); LYMPH % 29.7 % (20.0-40.0); MEAN CELL VOLUME 83.4 fl (81.0-99.0); MEAN CORPUSCULAR HEMOGLOBIN 27.7 pg (27.0-31.0); MEAN CORPUSCULAR HGB CONC 33.2 g/dL (33.0-37.0); MEAN PLATELET VOLUME 9.1 fl (7.2-11.7); MONO # 0.4 K/uL (0.0-0.8); NEUT # 3.2 K/uL (1.8-7.0); NEUT % 57.9 % (50.0-75.0); NRBC % 0.1 % (0.0-0.0); RBC 4.21 Mil/uL (3.80-5.20); RED CELL DISTRIBUTION WIDTH 14.8 % (11.5-14.5); WHITE BLOOD COUNT 5.6 K/uL (4.8-10.8)
[2018-01-08 18:38] LABS: ALBUMIN 4.5 g/dL (3.5-5.0); ALT/SGPT 40 U/L (9-52); AST/SGOT 30 U/L (14-36); BLOOD UREA NITROGEN 15 mg/dl (7-17); CALCIUM 9.7 mg/dL (8.4-10.2); GFR AFRICAN-AMERICAN > 60; GFR NON-AFRICAN AMERICAN > 60
[2018-01-08 18:43] LABS: PARTIAL THROMBOPLASTIN TIME 28.9 Seconds (25.6-37.1); PROTHROMBIN TIME 10.7 Seconds (9.8-13.1)
== END 2018-01-08 19:40 | disposition home or self-care (01) ==
LOC: H.ER 15:40
DX: R21 Rash and other nonspecific skin eruption (principal); E11.9 Type 2 diabetes mellitus without complications; Z86.59 Personal history of other mental and behavioral disorders; J45.909 Unspecified asthma, uncomplicated; Z79.84 Long term (current) use of oral hypoglycemic drugs; I11.0 Hypertensive heart disease with heart failure; E03.9 Hypothyroidism, unspecified; E78.00 Pure hypercholesterolemia, unspecified; I50.9 Heart failure, unspecified

== ENCOUNTER 2018-10-16 02:10 | Emergency (ER) | payer MEDICARE, MEDICAID ==
[2018-10-16 02:11] VITALS: BMI 24.8
[2018-10-16 02:23] VITALS: BP 149/72; PULSE 78; RESP 16; TEMP 98.3; O2SAT 100
[2018-10-16] MEDS ORDERED: Albuterol-Ipratrop 3 mg / 0.5 (3 ml) UD INH STA (02:49)
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
[2018-10-16] MEDS ORDERED: Albuterol-Ipratrop 3 mg / 0.5 (3 ml) UD ONE (04:04)
[2018-10-16 04:06] LABS: BASO % 0.6 % (0.0-2.0); EOS # 0.2 K/uL (0.0-0.7); EOS % 3.7 % (0.0-4.0); LYMPH # 1.1 K/uL (1.0-4.3); LYMPH % 26.3 % (20.0-40.0); MEAN CELL VOLUME 81.2 fl (81.0-99.0); MEAN CORPUSCULAR HEMOGLOBIN 26.8 pg (27.0-31.0); MEAN PLATELET VOLUME 9.6 fl (7.2-11.7); MONO # 0.3 K/uL (0.0-0.8); MONO % 8.1 % (0.0-10.0); NEUT # 2.5 K/uL (1.8-7.0); NEUT % 61.3 % (50.0-75.0); NRBC % 0.1 % (0.0-0.0); RBC 4.11 Mil/uL (3.80-5.20); RED CELL DISTRIBUTION WIDTH 15.7 % (11.5-14.5); WHITE BLOOD COUNT 4.1 K/uL (4.8-10.8)
[2018-10-16 04:14] LABS: ALBUMIN 4.1 g/dL (3.5-5.0); ALT/SGPT 53 U/L (9-52); AST/SGOT 39 U/L (14-36); BLOOD UREA NITROGEN 22 mg/dl (7-17); CALCIUM 9.5 mg/dL (8.4-10.2); GFR NON-AFRICAN AMERICAN > 60
[2018-10-16 04:25] LABS: B-TYPE NATRIURETIC PEPTIDE 104 pg/ml (0-900)
--- NOTE | 2018-10-16 08:08 | CARD ---
APPROVED REPORT Date of service: 10/16/2018 EKG Measurement Heart [id number] <Conclusion> Normal sinus rhythm Normal ECG
--- NOTE | 2018-10-16 11:01 | RAD ---
Date of service: 10/16/2018 HISTORY: SOB COMPARISON: 07/31/2017 FINDINGS: LUNGS: The lungs are well inflated and clear. PLEURA: No pleural effusions or pneumothorax. CARDIOVASCULAR: The heart is normal in size. No aortic atherosclerotic calcifications present. OSSEOUS STRUCTURES: Within normal limits for the patient's age. VISUALIZED UPPER ABDOMEN: Normal. OTHER FINDINGS: There is chronic elevation of the right hemidiaphragm. IMPRESSION: No active pulmonary disease.
== END 2018-10-16 05:30 | disposition home or self-care (01) ==
LOC: H.ER 02:10
DX: J40 Bronchitis, not specified as acute or chronic (principal); E03.9 Hypothyroidism, unspecified; E11.9 Type 2 diabetes mellitus without complications; E78.00 Pure hypercholesterolemia, unspecified; I11.0 Hypertensive heart disease with heart failure; Z79.84 Long term (current) use of oral hypoglycemic drugs; J44.9 Chronic obstructive pulmonary disease, unspecified